=== PATIENT | female | born 1965 | race Asian ===

== ENCOUNTER 2018-06-15 12:17 | Outpatient (CLI) | payer OTHER ==
--- NOTE | 2018-06-16 10:18 | Mammography Report ---
Procedure Date: 06/15/2018 Accession Number: [id number] / [id number] Procedure: MGN - Screening Mammo Dig Bilat CPT Code: FULL RESULT: EXAM: Screening Mammo Dig Bilat DATE: 06/15/2018 12:39 PM CLINICAL HISTORY: Routine screening TECHNIQUE: Bilateral CC and MLO views were obtained. COMPARISON: 01/29/2016, 05/15/2014, 07/15/2012 and 05/23/2010 FINDINGS: The breast tissue is heterogeneously dense. No significant interval change. No suspicious masses, clustered microcalcifications, or regions of architectural distortion are identified. IMPRESSION: Negative examination RECOMMENDATION: Routine annual screening unless otherwise clinically indicated. BIRADS CATEGORY 1: Negative STANDARD QUALIFYING STATEMENTS: 1. This examination was reviewed with the aid of Computer-Aided Detection (CAD). 2. A negative or benign imaging report should not delay biopsy if clinically suspicious findings are present. Consider surgical consultation if warrented. More than 5% of cancers are not identified by imaging. 3. Dense breasts may obscure an underlying neoplasm.
== END 2018-06-15 12:18 | disposition home or self-care (01) ==
LOC: DI.N 12:17
PROVIDERS: ATTEND Obstetrics & Gynecology
DX: Z12.31 Encounter for screening mammogram for malignant neoplasm of breast (principal)
CPT/HCPCS: 77067

== ENCOUNTER 2018-07-02 14:17 | Outpatient (CLI) | payer OTHER ==
--- NOTE | 2018-07-03 16:00 | Ultrasound Report ---
Reason: POSTMENOPAUSAL BLEEDING Procedure Date: 07/02/2018 Accession Number: [id number] / [id number] Procedure: US - Pelvic w/Transvaginal CPT Code: FULL RESULT: EXAM: PELVIC ULTRASOUND EXAM DATE: 07/02/2018 04:01 PM. CLINICAL HISTORY: POSTMENOPAUSAL BLEEDING. COMPARISON: None. TECHNIQUE: Realtime transabdominal pelvic scan performed to identify the uterus and adnexa and as an overview of other pelvic structures, followed by transvaginal scan to provide greater detail of the uterus and adnexa, with static image documentation. FINDINGS: Limited exam given body habitus. Uterus: 8.3 x 3.8 x 5.6 cm, volume 92 cc.Heterogeneous echotexture. Masses: None. Endometrium: 3.1 mm on transabdominal images. Endometrium not well visualized on transvaginal images. Cervix: Heterogeneous. Complex cystic area in the cervix measures 1.2 cm, query Nabothian cyst. Right Ovary: 3.2 x 1.5 x 2.7 cm, volume 6.7 cc. Normal echotexture and blood flow. Left Ovary: 2.0 x 1.6 x 1.7 cm, volume 2.8 cc. Normal echotexture and blood flow. Free Fluid: None. Other: None. IMPRESSION: Limited exam. Endometrium measures 3 mm on transabdominal images, query endometrial atrophy. RADIA
== END 2018-07-02 14:18 | disposition home or self-care (01) ==
LOC: DI 14:17
PROVIDERS: ATTEND Obstetrics & Gynecology
DX: N95.0 Postmenopausal bleeding (principal)
CPT/HCPCS: 76830; 76856

== ENCOUNTER 2019-07-08 10:22 | Outpatient (CLI) | payer OTHER ==
--- NOTE | 2019-07-12 09:37 | Mammography Report ---
Reason: SCREENING MAMMO Procedure Date: 07/08/2019 Accession Number: [id number] / [id number] Procedure: MGN - Screening Mammo Dig Bilat CPT Code: FULL RESULT: EXAM: Screening Mammo Dig Bilat DATE: 07/08/2019 10:44 AM CLINICAL HISTORY: Routine screening TECHNIQUE: (B) - Bilateral CC and MLO views were obtained. COMPARISON: 06/15/2018, 09/07/2012, 01/28/2010 and 10/27/2008 PARENCHYMAL PATTERN: (VD) - The breasts demonstrate extremely dense parenchyma bilaterally, limiting the sensitivity of mammography. FINDINGS: No significant interval change. There are no suspicious masses, calcifications, or areas of distortion. IMPRESSION: Negative examination. BI-RADS category 1. RECOMMENDATION: (ANNUAL) - Recommend routine annual screening mammography. BI-RADS CATEGORY: (1) - Negative. STANDARD QUALIFYING STATEMENTS: 1. This examination was not reviewed with the aid of Computer-Aided Detection (CAD). 2. A negative or benign imaging report should not preclude biopsy if clinically suspicious findings are present. 3. Dense breasts may obscure an underlying neoplasm. 4. This examination was reviewed without the aid of 3D breast imaging (tomosynthesis).
== END 2019-07-08 10:23 | disposition home or self-care (01) ==
LOC: DI.N 10:22
DX: Z12.31 Encounter for screening mammogram for malignant neoplasm of breast (principal)
CPT/HCPCS: 77067

== ENCOUNTER 2020-01-03 11:22 | Emergency (ER) | payer OTHER ==
--- NOTE | 2020-01-03 13:48 | ED Physician Documentation ---
History of Present Illness - Stated complaint Stated Complaint: FEVER/COUGH - Chief complaint Chief Complaint: General - History obtained from History obtained from: Patient (this 54 yr old female presents with a 5-7 day course of sinus pressure in the face, has some PND when lying flat, otherwise she is without couging, rhinnorhea, fever, nausea, vomiting, diarrhea, or headache. she has taken Ibuprofen for the past two days with some relief.She has tried nothing else for symptom management. She denies any home contacts that are sick, she does work at a [employer] where there is smoking allowed.), Family Review of Systems Constitutional: reports: Fatigue. denies: Fever, Chills Ears: reports: Reviewed and negative Nose: reports: Reviewed and negative GI: denies: Abdominal Pain, Nausea, Vomiting, Diarrhea Musculoskeletal: reports: Reviewed and negative Neurologic: denies: Headache PD PAST MEDICAL HISTORY - Past Medical History Cardiovascular: Hypertension Respiratory: None Psych: Depression, Anxiety - Past Surgical History Past Surgical History: No - Present Medications Home Medications: Ambulatory Orders Medication Instructions Recorded Confirmed Azithromycin [Zithromax] 250 mg PO DAILY #6 tablet 10/14/16 Benzonatate [Tessalon] 100 - 200 mg PO TID PRN #20 capsule 10/14/16 Losartan/Hydrochlorothiazide 1 tab PO DAILY 10/14/16 10/14/16 [Losartan-Hctz 100-12.5 mg Tab] Oseltamivir [Tamiflu] 75 mg PO BID #10 capsule 10/14/16 Simvastatin 1 tab PO DAILY 10/14/16 10/14/16 - Allergies Allergies/Adverse Reactions: Allergies Allergy/AdvReac Type Severity Reaction Status Date / Time No Known Drug Allergies Allergy Verified 01/03/20 11:32 - Social History Does the pt smoke?: No Smoking Status: Never smoker Does the pt drink ETOH?: Yes Does the pt have substance abuse?: No - Immunizations Immunizations are current?: Yes - POLST Patient has POLST: No PD ED PE NORMAL - General General: Alert and oriented X 3 - HEENT HEENT: Atraumatic, PERRL, EOMI, Ears normal - Neck Neck: No adenopathy - Cardiac Cardiac: RRR, No murmur - Respiratory Respiratory: No respiratory distress, Clear bilaterally - Neuro Neuro: Alert and oriented X 3 PD ED PE EXPANDED - General General: No acute distress, Well developed/nourished - HEENT HEENT: PERRL, Right maxillary sinus TTP, Left maxillary sinus TTP. No: Nasal congestion, Rhinorrhea - Neck Neck: No: Adenopathy Results - Vitals Vitals: Vital Signs - 24 hr 01/03/20 01/03/20 11:32 13:06 Temperature 37.2 C 36.7 C Heart Rate 64 58 L Respiratory 18 16 Rate Blood Pressure 126/63 129/61 O2 Saturation 97 98 Oxygen O2 Source Room air PD MEDICAL DECISION MAKING - ED course Complexity details: reviewed old records, d/w patient, d/w family (The pt has some maxillary TTP, without nasal exudate or PND. The pt remains without coughing, wheezing, SOB, and is afebrile.) Departure - Departure Disposition: 01 Home, Self Care Clinical Impression: Sinusitis nasal Qualifiers: Sinusitis location: maxillary Chronicity: acute Recurrence: non-recurrent Qualified Code(s): J01.00 - Acute maxillary sinusitis, unspecified Condition: Good Instructions: ED Sinusitis No Abx Comments: the pt is encouraged to do nasal flushing / rinse daily to help alleviate sinuses congestion. Encourage plenty of clear fluids, limiting dairy intake to help reduce worsening congestion. She can continue to use Ibuprofen for facial discomfort and general soreness. She can follow up with her PCP if her symptoms fail to improve in 3-5 days, or she may return to the emergency room if her symptoms worsen. Forms: Activity restrictions
[2020-01-03 14:24] VITALS: BP 135/71
== END 2020-01-03 14:26 | disposition home or self-care (01) ==
LOC: ED 11:22
DX: J01.00 Acute maxillary sinusitis, unspecified (principal); I10 Essential (primary) hypertension
CPT/HCPCS: 99282; 99283

== ENCOUNTER 2020-02-14 01:50 | Emergency (ER) | payer OTHER ==
--- NOTE | 2020-02-14 01:52 | ED Physician Documentation ---
PD HPI URI - Stated complaint Stated Complaint: COUGH - History obtained from History obtained from: Patient - History of Present Illness Timing - onset: How many days ago (3) Timing duration: Days (3) Associated symptoms: Chills, Nasal congestion, Dry cough, Dyspnea. No: Fever, Rhinorrhea, Productive cough, Chest pain, NVD, Bilateral edema Contributing factors: No: Sick contact (but is concerned about COVID), Travel, Immunocompromised, COPD / asthma Similar symptoms before: Has not had sx before Recently seen: Not recently seen Review of Systems Constitutional: reports: Myalgias, Fatigue. denies: Fever, Chills Nose: reports: Rhinorrhea / runny nose, Congestion Throat: denies: Sore throat Cardiac: denies: Chest pain / pressure, Palpitations Respiratory: reports: Dyspnea, Cough. denies: Wheezing Skin: denies: Rash, Lesions PD PAST MEDICAL HISTORY - Past Medical History Cardiovascular: Hypertension Respiratory: None Psych: Depression, Anxiety - Past Surgical History Past Surgical History: No - Present Medications Home Medications: Ambulatory Orders Medication Instructions Recorded Confirmed Losartan/Hydrochlorothiazide 1 tab PO DAILY 10/14/16 10/14/16 [Losartan-Hctz 100-12.5 mg Tab] Simvastatin 1 tab PO DAILY 10/14/16 10/14/16 Albuterol Sulfate [Albuterol 2 puffs IH QID #1 hfa.aer.ad 02/14/20 Sulfate Hfa] Benzonatate [Tessalon Perle] 100 mg PO TID PRN #25 capsule 02/14/20 - Allergies Allergies/Adverse Reactions: Allergies Allergy/AdvReac Type Severity Reaction Status Date / Time No Known Drug Allergies Allergy Verified 01/03/20 11:32 - Social History Does the pt smoke?: No Smoking Status: Never smoker Does the pt drink ETOH?: Yes Does the pt have substance abuse?: No - Immunizations Immunizations are current?: Yes - POLST Patient has POLST: No PD ED PE NORMAL - Vitals Vital signs reviewed: Yes - General General: Alert and oriented X 3, No acute distress, Well developed/nourished - Neck Neck: Supple, no meningeal sign, No adenopathy - Cardiac Cardiac: RRR, No murmur - Respiratory Respiratory: Clear bilaterally, Other (no chestwall tenderness) - Abdomen Abdomen: Soft, Non tender - Derm Derm: Normal color, Warm and dry - Extremities Extremities: No tenderness to palpate, Normal ROM s pain, No edema, No calf tenderness / cord - Neuro Neuro: Alert and oriented X 3, No motor deficit, Normal speech Results - Vitals Vitals: Vital Signs - 24 hr 02/14/20 02:06 Temperature 36.9 C Heart Rate 55 L Respiratory 16 Rate Blood Pressure 148/80 H O2 Saturation 99 Oxygen O2 Source Room air - Rads (name of study) chest xray Radiology: Prelim report reviewed (normal), See rad report Departure - Departure Disposition: Home, Self Care Clinical Impression: Cough Upper respiratory infection Qualifiers: URI type: unspecified URI Qualified Code(s): J06.9 - Acute upper respiratory infection, unspecified Condition: Stable Record reviewed to determine appropriate education?: Yes Instructions: ED Upper Resp Infec No Abx Tx Follow-Up: Dennis Garcia MD [Primary Care Provider] - Prescriptions: Albuterol Sulfate [Albuterol Sulfate Hfa] 2 puffs IH QID #1 hfa.aer.ad Benzonatate [Tessalon Perle] 100 mg PO TID PRN #25 capsule PRN Reason: Cough Comments: Your chest x-ray appears clear. No signs of pneumonia at this time. Your symptoms may be from upper respiratory infection with the cough. Alternatively it could be seasonal allergies or such as well. Your COVID test will result in 1 or 2 days and will call you with the results. Meanwhile we will try to improve your symptoms with an albuterol inhaler 2 puffs 4 times a day for the next 7 to 10 days. O Tessalon if needed for cough. Stay well-hydrated. Tylenol or ibuprofen if needed for fevers or pains. Recheck if worsening over the next several days to a week. Discharge Date/Time: 02/14/20 03:30
[2020-02-14 02:08] VITALS: BP 148/80
[2020-02-14] MEDS ORDERED: BENZONATATE 100 MG CAPSULE PO STA (02:18)
--- NOTE | 2020-02-14 02:48 | XRAY Report ---
Reason: cough and dyspnea for 3 days Procedure Date: 02/14/2020 Accession Number: [id number] / [id number] Procedure: XR - Chest 1 View X-Ray CPT Code: 89963 Final Report FULL RESULT: EXAM: CHEST RADIOGRAPHY EXAM DATE: 02/14/2020 02:36 AM. CLINICAL HISTORY: Cough and dyspnea for 3 days. COMPARISON: XR CHEST PA AND LAT 03/22/2011 10:52 PM XR CHEST PA AND LAT 04/14/2010 12:23 PM. TECHNIQUE: 1 view. FINDINGS: Lungs/Pleura: Small streaky right upper lobe opacity persist, patient will be a sequela of scarring. There is no new airspace disease. No effusion or definite pneumothorax. Mediastinum: Cardiac silhouette is within normal limits when accounting for lung volumes and technique. Other: None. IMPRESSION: Stable appearance of the chest without acute cardiopulmonary abnormality. RADIA
[2020-02-14] MEDS ORDERED: CHERRY SYRUP 10 ML UDC PO ONE (02:58)
[2020-02-14] MEDS ORDERED: DEXAMETHASONE 10 MG/ML VIAL PO STA (02:58)
== END 2020-02-14 03:30 | disposition home or self-care (01) ==
LOC: ED 01:50
DX: J06.9 Acute upper respiratory infection, unspecified (principal); I10 Essential (primary) hypertension
CPT/HCPCS: 71045; 87635; 99283; 99284; A9270; 81599

== ENCOUNTER 2020-03-27 08:00 | Outpatient (CLI) | payer OTHER ==
[2020-03-27 18:19] LABS: BASOPHILS # (AUTO) 0.1 10^3/uL (0.0-0.1); BASOPHILS % (AUTO) 0.6 %; EOSINOPHILS # (AUTO) 0.1 10^3/uL (0.0-0.7); EOSINOPHILS % (AUTO) 1.4 %; HGB - HEMOGLOBIN 13.5 g/dL (12.0-16.0); LYMPHOCYTES # (AUTO) 1.9 10^3/uL (1.5-3.5); MEAN CORPUSCULAR HEMOGLOBIN 30.3 pg (27.0-31.0); MEAN CORPUSCULAR HGB CONC 33.2 g/dL (32.0-36.0); MEAN CORPUSCULAR VOLUME 91.3 fL (81.0-99.0); MEAN PLATELET VOLUME 9.6 fL (7.9-10.8); MONOCYTES # (AUTO) 0.7 10^3/uL (0.0-1.0); MONOCYTES % (AUTO) 7.7 %; NEUTROPHILS # (AUTO) 6.7 10^3/uL (1.5-6.6); PLT - PLATELET COUNT 357 10^3/uL (130-450); RED BLOOD COUNT 4.46 10^6/uL (4.20-5.40); RED CELL DISTRIBUTION WIDTH 12.4 % (12.0-15.0); WHITE BLOOD COUNT 9.6 x10^3/uL (4.8-10.8)
[2020-03-27 18:30] LABS: ALKALINE PHOSPHATASE 49 IU/L (42-121); ALT ALANINE AMINOTRANSFERASE 58 IU/L (10-60); AST ASPARTATE AMINOTRANSFERASE 57 IU/L (10-42); BILIRUBIN,TOTAL 0.7 mg/dL (0.2-1.0); BUN - BLOOD UREA NITROGEN 19 mg/dL (6-20); CALCIUM 9.4 mg/dL (8.5-10.3); CARBON DIOXIDE - CO2 31 mmol/L (21-32); CHLORIDE 101 mmol/L (101-111); CHOLESTEROL 144 mg/dL; CREATININE 0.7 mg/dL (0.4-1.0); GLUCOSE 153 mg/dL (70-100); HDL CHOLESTEROL 48 mg/dL; LDL CHOLESTEROL,CALCULATED 55 mg/dL; LDL/HDL RATIO 1.1 (<4.4); SODIUM 139 mmol/L (135-145); TOTAL PROTEIN 8.1 g/dL (6.7-8.2); VLDL CHOLESTEROL 41 mg/dL
== END 2020-03-27 23:59 | disposition home or self-care (01) ==
LOC: LAB.WCP 08:00
PROVIDERS: ATTEND Family Medicine
DX: I10 Essential (primary) hypertension (principal); E78.2 Mixed hyperlipidemia
CPT/HCPCS: 36415; 80053; 80061; 83721; 84443; 85025

== ENCOUNTER 2020-07-20 12:41 | Emergency (ER) | payer OTHER ==
[2020-07-20 13:05] LABS: BASOPHILS # (AUTO) 0.1 10^3/uL (0.0-0.1); BASOPHILS % (AUTO) 0.5 %; EOSINOPHILS # (AUTO) 0.2 10^3/uL (0.0-0.7); EOSINOPHILS % (AUTO) 1.7 %; HGB - HEMOGLOBIN 13.7 g/dL (12.0-16.0); LYMPHOCYTES # (AUTO) 2.1 10^3/uL (1.5-3.5); LYMPHOCYTES % (AUTO) 22.9 %; MEAN CORPUSCULAR HEMOGLOBIN 31.5 pg (27.0-31.0); MEAN CORPUSCULAR HGB CONC 33.9 g/dL (32.0-36.0); MEAN CORPUSCULAR VOLUME 92.9 fL (81.0-99.0); MEAN PLATELET VOLUME 9.2 fL (7.9-10.8); MONOCYTES # (AUTO) 0.8 10^3/uL (0.0-1.0); MONOCYTES % (AUTO) 8.8 %; NEUTROPHILS % (AUTO) 65.7 %; PLT - PLATELET COUNT 319 10^3/uL (130-450); RED BLOOD COUNT 4.35 10^6/uL (4.20-5.40); RED CELL DISTRIBUTION WIDTH 12.3 % (12.0-15.0); WHITE BLOOD COUNT 9.2 x10^3/uL (4.8-10.8)
[2020-07-20 13:18] LABS: ALBUMIN 4.1 g/dL (3.2-5.5); ALBUMIN/GLOBULIN RATIO 1.2 (1.0-2.2); BILIRUBIN,TOTAL 0.4 mg/dL (0.2-1.0); CALCIUM 9.3 mg/dL (8.5-10.3); CREATININE 0.8 mg/dL (0.4-1.0); TOTAL PROTEIN 7.5 g/dL (6.7-8.2)
[2020-07-20] MEDS ORDERED: DEXAMETHASONE 10 MG/ML VIAL IVP STA (15:05)
[2020-07-20] MEDS ORDERED: SODIUM CHLORIDE 0.9% 1,000 ML IV STA (15:06)
--- NOTE | 2020-07-20 15:07 | ED Physician Documentation ---
History of Present Illness - Stated complaint Stated Complaint: DIZZY, BILAT ARM TINGLING - Chief complaint Chief Complaint: General - History obtained from History obtained from: Patient, Family - History of Present Illness Timing: How many days ago (3) - Additonal information Additional information: 55-year-old female in her usual state of health is developed dizziness and lightheadedness as well as some numbness and tingling to her hands bilaterally. She has had a problem with cough for the past 2 months. Review of Systems Constitutional: denies: Fever Eyes: denies: Decreased vision Ears: denies: Ear pain Nose: denies: Congestion Throat: denies: Sore throat Cardiac: denies: Chest pain / pressure, Palpitations Respiratory: denies: Dyspnea, Cough GI: denies: Abdominal Pain, Nausea, Vomiting : reports: Frequency. denies: Dysuria Musculoskeletal: denies: Neck pain, Back pain, Extremity pain Neurologic: denies: Generalized weakness, Focal weakness, Numbness Endocrine: reports: Polydypsia, Polyuria PD PAST MEDICAL HISTORY - Past Medical History Cardiovascular: Hypertension Respiratory: None Neuro: None Endocrine/Autoimmune: None HEENT: None Psych: Depression, Anxiety Derm: None - Past Surgical History Past Surgical History: No - Present Medications Home Medications: Ambulatory Orders Medication Instructions Recorded Confirmed Losartan/Hydrochlorothiazide 1 tab PO DAILY 10/14/16 10/14/16 [Losartan-Hctz 100-12.5 mg Tab] Simvastatin 1 tab PO DAILY 10/14/16 10/14/16 Albuterol Sulfate [Albuterol 2 puffs IH QID #1 hfa.aer.ad 02/14/20 Sulfate Hfa] Benzonatate [Tessalon Perle] 100 mg PO TID PRN #25 capsule 02/14/20 Azithromycin [Zithromax] 250 mg PO DAILY #6 tablet 07/20/20 dexAMETHasone [Decadron] 4 mg PO DAILY #5 tablet 07/20/20 - Allergies Allergies/Adverse Reactions: Allergies Allergy/AdvReac Type Severity Reaction Status Date / Time No Known Drug Allergies Allergy Verified 07/20/20 12:45 - Social History Does the pt smoke?: No Smoking Status: Never smoker Does the pt drink ETOH?: Yes Does the pt have substance abuse?: No - Immunizations Immunizations are current?: Yes - POLST Patient has POLST: No PD ED PE NORMAL - Vitals Vital signs reviewed: Yes (normal ) - General General: Alert and oriented X 3, No acute distress, Well developed/nourished - HEENT HEENT: Atraumatic, PERRL, EOMI - Neck Neck: Supple, no meningeal sign, No bony TTP - Cardiac Cardiac: RRR, No murmur - Respiratory Respiratory: No respiratory distress, Clear bilaterally - Abdomen Abdomen: Soft, Non tender - Back Back: No CVA TTP, No spinal TTP - Derm Derm: Normal color, Warm and dry, No rash - Extremities Extremities: No deformity, No edema - Neuro Neuro: Alert and oriented X 3, resource economist 2-12 intact, No motor deficit, Normal speech, Other (subjective numbness to both upper ext. no motor component) Eye Opening: Spontaneous Motor: Obeys Commands Verbal: Oriented GCS Score: 15 - Psych Psych: Normal mood, Normal affect Results - Vitals Vitals: Vital Signs - 24 hr 07/20/20 07/20/20 07/20/20 12:45 14:19 16:00 Temperature 36.7 C 36.7 C Heart Rate 64 47 L 56 L Respiratory 16 22 18 Rate Blood Pressure 124/65 126/66 116/66 O2 Saturation 98 98 100 07/20/20 07/20/20 18:02 18:46 Temperature 36.8 C Heart Rate 62 60 Respiratory 17 20 Rate Blood Pressure 151/68 H 145/80 H O2 Saturation 100 99 Oxygen O2 Source Room air - Labs Labs: Laboratory Tests 07/20/20 07/20/20 07/20/20 13:01 13:01 13:01 WBC 9.2 RBC 4.35 Hgb 13.7 Hct 40.4 MCV 92.9 MCH 31.5 H MCHC 33.9 RDW 12.3 Plt Count 319 MPV 9.2 Neut # (Auto) 6.0 Lymph # (Auto) 2.1 [place] # (Auto) 0.8 Eos # (Auto) 0.2 Baso # (Auto) 0.1 Absolute Nucleated RBC 0.00 Nucleated RBC % 0.0 Sodium 137 Potassium 3.2 L Chloride 98 L Carbon Dioxide 25 Anion Gap 14.0 H BUN 16 Creatinine 0.8 Estimated GFR (MDRD) 75 L Glucose 113 H Calcium 9.3 Total Bilirubin 0.4 AST 41 ALT 52 Alkaline Phosphatase 49 Troponin I High Sens 5.1 Total Protein 7.5 Albumin 4.1 Globulin 3.4 Albumin/Globulin Ratio 1.2 Lipase 37 Urine Color Urine Clarity Urine pH Ur Specific [place] Urine Protein Urine Glucose (UA) Urine Ketones Urine Occult Blood Urine Nitrite Urine Bilirubin Urine Ictotest Urine Urobilinogen Ur Leukocyte Esterase Ur Microscopic Review Urine Culture Comments 07/20/20 07/20/20 16:16 16:26 WBC RBC Hgb Hct MCV MCH MCHC RDW Plt Count MPV Neut # (Auto) Lymph # (Auto) [place] # (Auto) Eos # (Auto) Baso # (Auto) Absolute Nucleated RBC Nucleated RBC % Sodium Potassium Chloride Carbon Dioxide Anion Gap BUN Creatinine Estimated GFR (MDRD) Glucose Calcium Total Bilirubin AST ALT Alkaline Phosphatase Troponin I High Sens Total Protein Albumin Globulin Albumin/Globulin Ratio Lipase Urine Color YELLOW Cancelled Urine Clarity CLEAR Cancelled Urine pH 6.5 Cancelled Ur Specific [place] 1.025 Cancelled Urine Protein NEGATIVE Cancelled Urine Glucose (UA) NEGATIVE Cancelled Urine Ketones NEGATIVE Cancelled Urine Occult Blood NEGATIVE Cancelled Urine Nitrite NEGATIVE Cancelled Urine Bilirubin NEGATIVE Cancelled Urine Ictotest Cancelled Urine Urobilinogen 0.2 (NORMAL) Cancelled Ur Leukocyte Esterase NEGATIVE Cancelled Ur Microscopic Review NOT INDICATED Cancelled Urine Culture Comments NOT INDICATED Cancelled - Rads (name of study) CT cervical spine Radiology: Prelim report reviewed (Impression: 1. No fracture or subluxation. Confluent anterior osteophytes within the mid and lower cervical spine with relative preservation of the disc spaces suggestive of diffuse idiopathic skeletal hyperostosis (dish).), EMP read indepedently, See rad report CT chest with Radiology: Prelim report reviewed (Impression: 1. Interstitial thickening and groundglass opacities in apex of the right lung compatible with atypical/viral pneumonia, asymmetric pulmonary edema, chronic interstitial lung disease or less likely carcinomatosis. 2. Hepatic steatosis.), EMP read indepedently, See rad report PD MEDICAL DECISION MAKING - ED course Complexity details: reviewed old records, reviewed results, re-evaluated patient, considered differential, d/w patient, d/w family ED course: 51-year-old female with 3 days of numbness to her arms has pathology on the cervical spine CT and I suspect she has a radiculopathy. She has had a cough and she has some findings on her CT scan of her chest of an atypical pneumonia. Here in the emergency department she is administered dexamethasone 10 mg IV and we will place her on some Azithromyacin for atypical pneumonia. She will need MRI of the cervical spine to be done as an outpatient. Departure - Departure Disposition: 01 Home, Self Care Clinical Impression: Atypical pneumonia, Cervical radiculopathy Condition: Stable Instructions: ED Pneumonia Adult, ED Cervical Radiculopathy Follow-Up: Dennis Garcia MD [Primary Care Provider] - Prescriptions: dexAMETHasone [Decadron] 4 mg PO DAILY #5 tablet Azithromycin [Zithromax] 250 mg PO DAILY #6 tablet Comments: Today we have found some abnormality to the cervical spine and you will need to have an MRI done of your cervical spine. This is what needs to be done as a outpatient procedure follow-up with Dr. Garcia to schedule this. Forms: Activity restrictions Discharge Date/Time: 07/20/20 18:55
--- NOTE | 2020-07-20 16:09 | CT Report ---
PROCEDURE: CERVICAL SPINE WO INDICATIONS: neck pain bilat arm numbness TECHNIQUE: Noncontrast 3 mm thick sections acquired from the skull base to the T4 level. Sagittal and coronal r eformats were then constructed. For radiation dose reduction, the following was used: automated exp osure control, adjustment of mA and/or kV according to patient size. COMPARISON: None. FINDINGS: Image quality: Excellent. Bones: No fractures or dislocations. There is straightening of the cervical lordosis. Bridging anter ior osteophytes are demonstrated within the mid and lower cervical spine. Disc spaces appear relative ly preserved. Visualized superior ribs are intact. Soft tissues: Prevertebral soft tissues are normal in thickness. No paravertebral hematomas. No ap ical pneumothoraces. Within the visualized right upper lobe, there are confluent groundglass opacitie s and septal thickening with a small right pleural effusion. Findings are incompletely evaluated on t he current study. IMPRESSION: 1. No fracture or subluxation. 2. Confluent anterior osteophytes within the mid and lower cervical spine with relative preservation of the disc spaces suggestive of diffuse idiopathic skeletal hyperostosis (DISH). 3. Confluent groundglass opacities with septal thickening and small pleural effusion within the visua lized right lung. The findings are nonspecific but suggestive of pneumonia. Recommend dedicated chest CT for further evaluation. Reviewed by: Paulie Lomas MD on 07/20/2020 4:07 PM PDT Approved by: Paulie Lomas MD on 07/20/2020 4:07 PM PDT Station ID: [id number]
[2020-07-20] MEDS ORDERED: IOVERSOL 320 100 ML VIAL IVP ONE ×2 (17:06→19:41)
[2020-07-20 17:26] LABS: BILIRUBIN,URINE NEGATIVE (NEGATIVE); GLUCOSE, URINE (UA) NEGATIVE (NEGATIVE); KETONES,URINE (UA) NEGATIVE (NEGATIVE); LEUKOCYTE ESTERASE, URINE NEGATIVE (NEGATIVE); NITRITE,URINE NEGATIVE (NEGATIVE); OCCULT BLOOD,URINE NEGATIVE (NEGATIVE); PH,URINE 6.5 PH (5.0-7.5); PROTEIN,URINE NEGATIVE (NEGATIVE); UROBILINOGEN,URINE 0.2 (NORMAL) E.U./dL (NORMAL)
[2020-07-20 17:43] LABS: CLARITY,URINE CLEAR (CLEAR)
--- NOTE | 2020-07-20 18:12 | CT Report ---
PROCEDURE: CHEST W INDICATIONS: cough findings on cervical spine CT CONTRAST: IV CONTRAST: Optiray 320 ml: 100 PO CONTRAST: *NO PO CONTRAST TECHNIQUE: After the administration of intravenous contrast, 5 mm thick sections acquired from the pulmonary api macy to the posterior costophrenic angles. 7 mm thick coronal MIP reformats were acquired. For radia tion dose reduction, the following was used: automated exposure control, adjustment of mA and/or kV according to patient size. COMPARISON: None. FINDINGS: Image quality: Excellent. Lungs and pleura: Interstitial thickening and scattered groundglass opacities noted in the apex of th e right lung. No pleural effusions or pneumothorax. Central and peripheral airways are patent and no rmal in caliber. Mediastinum: Heart size is normal. No pericardial effusion. No mediastinal or hilar adenopathy by size criteria. Thoracic aorta and central pulmonary arteries are normal in size. Esophagus is hao l in caliber. Small hiatal hernia. Bones and chest wall: No suspicious bony lesions. No vertebral body compression fractures. No axil ghazala or supraclavicular adenopathy by size criteria. Thyroid gland is within normal limits. Abdomen: Diffuse fatty infiltration of the visualized liver. Visualized upper abdominal solid organs otherwise appear normal. Upper abdominal bowel loops are normal in caliber. IMPRESSION: 1. Interstitial thickening and ground glass opacities in apex of the right lung compatible with atypi vic/viral pneumonia, asymmetric pulmonary edema, chronic interstitial lung disease or less likely car cinomatosis. 2. Hepatic steatosis. Reviewed by: Maame Capellan MD, PhD on 07/20/2020 6:11 PM PDT Approved by: Maame Capellan MD, PhD on 07/20/2020 6:11 PM PDT Station ID: [id number]
[2020-07-20 18:46] VITALS: BP 145/80
== END 2020-07-20 18:55 | disposition home or self-care (01) ==
LOC: ED 12:41
DX: J18.9 Pneumonia, unspecified organism (principal); M54.12 Radiculopathy, cervical region
CPT/HCPCS: 36415; 71260; 72125; 80053; 81003; 83690; 84484; 85025; 96361; 96374; 99284; Q9967; 81001; 87086

== ENCOUNTER 2020-09-23 22:28 | Emergency (ER) | payer OTHER ==
--- NOTE | 2020-09-23 23:54 | ED Physician Documentation ---
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: None : None HEENT: None Psych: Depression, Anxiety Musculoskeletal: None Derm: None - Past Surgical History Past Surgical History: No - Present Medications Home Medications: Ambulatory Orders Medication Instructions Recorded Confirmed Losartan/Hydrochlorothiazide 1 tab PO DAILY 10/14/16 10/14/16 [Losartan-Hctz 100-12.5 mg Tab] Atorvastatin [Lipitor] 40 mg pe DAILY 09/23/20 09/23/20 Omeprazole 20 mg DAILY 09/23/20 09/23/20 Sertraline [Zoloft] 09/23/20 - Allergies Allergies/Adverse Reactions: Allergies Allergy/AdvReac Type Severity Reaction Status Date / Time No Known Drug Allergies Allergy Verified 09/23/20 22:35 - Social History Does the pt smoke?: No Smoking Status: Never smoker Does the pt drink ETOH?: Yes Does the pt have substance abuse?: No - Immunizations Immunizations are current?: Yes - POLST Patient has POLST: No Results - Vitals Vitals: Vital Signs - 24 hr 09/23/20 09/23/20 09/23/20 22:35 22:57 22:59 Temperature 36.5 C Heart Rate 68 85 53 L Respiratory 16 15 Rate Blood Pressure 176/78 H 138/64 H 138/64 H O2 Saturation 98 100 100 09/24/20 00:39 Temperature 36.6 C Heart Rate 54 L Respiratory 14 Rate Blood Pressure 120/57 L O2 Saturation 98 Oxygen O2 Source Room air - Labs Labs: Laboratory Tests 09/24/20 09/24/20 00:15 00:15 WBC 8.5 RBC 4.16 L Hgb 13.0 Hct 38.5 MCV 92.5 MCH 31.3 H MCHC 33.8 RDW 11.7 L Plt Count 306 MPV 9.1 Neut # (Auto) 5.4 Lymph # (Auto) 2.0 [place] # (Auto) 0.9 Eos # (Auto) 0.2 Baso # (Auto) 0.1 Absolute Nucleated RBC 0.00 Nucleated RBC % 0.0 Sodium 136 Potassium 3.3 L Chloride 100 L Carbon Dioxide 28 Anion Gap 8.0 BUN 24 H Creatinine 0.7 Estimated GFR (MDRD) 87 L Glucose 110 H Calcium 9.4 Total Bilirubin 0.8 AST 30 ALT 34 Alkaline Phosphatase 54 Total Protein 7.5 Albumin 4.1 Globulin 3.4 Albumin/Globulin Ratio 1.2 Lipase 38 Departure - Departure Disposition: 01 Home, Self Care Clinical Impression: Hypokalemia Hypertension Qualifiers: Hypertension type: unspecified Qualified Code(s): I10 - Essential (primary) hypertension Condition: Good Instructions: ED HTN Established, ED Potassium Deficiency Discharge Date/Time: 09/24/20 01:36
[2020-09-24 00:21] LABS: BASOPHILS # (AUTO) 0.1 10^3/uL (0.0-0.1); BASOPHILS % (AUTO) 0.6 %; EOSINOPHILS # (AUTO) 0.2 10^3/uL (0.0-0.7); EOSINOPHILS % (AUTO) 2.3 %; LYMPHOCYTES % (AUTO) 23.2 %; MEAN CORPUSCULAR HEMOGLOBIN 31.3 pg (27.0-31.0); MEAN CORPUSCULAR HGB CONC 33.8 g/dL (32.0-36.0); MEAN CORPUSCULAR VOLUME 92.5 fL (81.0-99.0); MEAN PLATELET VOLUME 9.1 fL (7.9-10.8); MONOCYTES # (AUTO) 0.9 10^3/uL (0.0-1.0); MONOCYTES % (AUTO) 10.7 %; NEUTROPHILS # (AUTO) 5.4 10^3/uL (1.5-6.6); NEUTROPHILS % (AUTO) 62.7 %; PLT - PLATELET COUNT 306 10^3/uL (130-450); RED BLOOD COUNT 4.16 10^6/uL (4.20-5.40); RED CELL DISTRIBUTION WIDTH 11.7 % (12.0-15.0); WHITE BLOOD COUNT 8.5 x10^3/uL (4.8-10.8)
[2020-09-24 00:33] LABS: ALBUMIN 4.1 g/dL (3.2-5.5); ALBUMIN/GLOBULIN RATIO 1.2 (1.0-2.2); BILIRUBIN,TOTAL 0.8 mg/dL (0.2-1.0); CALCIUM 9.4 mg/dL (8.5-10.3); CREATININE 0.7 mg/dL (0.4-1.0); TOTAL PROTEIN 7.5 g/dL (6.7-8.2)
[2020-09-24 00:43] VITALS: BP 120/57
[2020-09-24] MEDS ORDERED: POTASSIUM CHLORIDE 20 MEQ TABLET PO STA (00:48)
== END 2020-09-24 01:36 | disposition home or self-care (01) ==
LOC: ED 22:28
DX: I10 Essential (primary) hypertension (principal); E87.6 Hypokalemia
CPT/HCPCS: 36415; 80053; 83690; 85025; 99283; A9270

== ENCOUNTER 2020-10-05 08:42 | Outpatient (CLI) | payer OTHER ==
[2020-10-05] MEDS ORDERED: IOVERSOL 320 100 ML VIAL IVP ONE ×2 (09:11→16:32)
--- NOTE | 2020-10-05 14:14 | CT Report ---
PROCEDURE: CHEST W INDICATIONS: ABN CHEST CT CONTRAST: IV CONTRAST: Optiray 320 ml: 80 PO CONTRAST: *NO PO CONTRAST TECHNIQUE: After the administration of intravenous contrast, 5 mm thick sections acquired from the pulmonary api macy to the posterior costophrenic angles. 7 mm thick coronal MIP reformats were acquired. For radia tion dose reduction, the following was used: automated exposure control, adjustment of mA and/or kV according to patient size. COMPARISON: 07/20/2020. FINDINGS: Image quality: Excellent. Lungs and pleura: Compared to previous study, again noted are interstitial thickening and scattered g roundglass opacities in right upper lobe not significantly changed in size and appearance from previo us study. Additional scattered areas of interstitial nodular thickening are again seen scattered in t he periphery of bilateral mid to lower lung munoz not significantly changed from prior study. No ple ural effusions or pneumothorax. Central and peripheral airways are patent and normal in caliber. Mediastinum: Heart size is normal. No pericardial effusion. No mediastinal or hilar adenopathy by size criteria. Thoracic aorta and central pulmonary arteries are normal in size. Esophagus is hao l in caliber. No hiatal hernia. Bones and chest wall: No suspicious bony lesions. No vertebral body compression fractures. No axil ghazala or supraclavicular adenopathy by size criteria. Thyroid gland there is unremarkable. Abdomen: Visualized upper abdominal solid organs appear normal. Upper abdominal bowel loops are nor mal in caliber. Hepatic steatosis is again seen. IMPRESSION: 1. No significant changes from previous study. Stable appearing interstitial thickening and groundgla ss opacities in right apex and scattered in periphery of bilateral mid to lower lung munoz most cons istent with chronic interstitial lung disease. No new area of airspace opacity is seen. No pleural ef fusion or pneumothorax. Airway is patent. 2. No mediastinal or hilar lymphadenopathy. Reviewed by: Joe Rush MD on 10/05/2020 1:13 PM [place] Approved by: Joe Rush MD on 10/05/2020 1:13 PM [place] Station ID: [id number]
== END 2020-10-05 08:43 | disposition home or self-care (01) ==
LOC: DI 08:42
PROVIDERS: ATTEND Internal Medicine
DX: R93.89 Abnormal findings on diagnostic imaging of other specified body structures (principal)
CPT/HCPCS: 71260; Q9967

== ENCOUNTER 2021-01-03 10:16 | Outpatient (CLI) | payer OTHER ==
--- NOTE | 2021-01-04 10:12 | Mammography Report ---
BILATERAL DIGITAL SCREENING MAMMOGRAM 3D/2D: 01/03/2021 CLINICAL: Routine Screening. Comparison is made to exams dated: 07/08/2019 mammogram, 06/15/2018 mammogram, 09/07/2012 mammogram, a nd 01/28/2010 mammogram - [facility]. The tissue of both breasts is extremely dense, which lowers the sensitivity of mammography. No significant masses, calcifications, or other findings are seen in either breast. There has been no significant interval change. IMPRESSION: NEGATIVE There is no mammographic evidence of malignancy. A 1 year screening mammogram is recommended. This exam was interpreted at Station ID: [id number]. NOTE: For mammograms, a report in lay terms will be sent to the patient. Approximately 15% of breast malignancies will not be visualized mammographically. In the management of a palpable breast mass, a negative mammogram must not discourage biopsy of a clinically suspicious lesion. Electronically Signed By: Paulie Lomas M.D. ddp/penrad:01/03/2021 11:18:43 ACR BI-RADS Category 1: Negative 3341F PARENCHYMAL PATTERN: (VD) - The breast(s) demonstrate(s) extremely dense parenchyma, limiting the sen sitivity of mammography. BI-RADS CATEGORY: (1) - 1 RECOMMENDATION: (ANNUAL) - Recommend routine annual screening mammography. [id number] 1 year screening LATERALITY: (B)
== END 2021-01-03 10:17 | disposition home or self-care (01) ==
LOC: DI.N 10:16
DX: Z12.31 Encounter for screening mammogram for malignant neoplasm of breast (principal)

== ENCOUNTER 2021-02-22 11:47 | Outpatient (CLI) | payer OTHER ==
--- NOTE | 2021-02-22 16:53 | XRAY Report ---
PROCEDURE: Ankle 3 View LT INDICATIONS: SPRAIN OF LEFT ANKLE TECHNIQUE: 3 views of the ankle were acquired. COMPARISON: None FINDINGS: Bones: No fractures or dislocations. Ankle mortise is normally aligned. No suspicious bony lesions . Soft tissues: No tibiotalar joint effusion. Achilles tendon appears normal. Lateral soft tissue swe lling is noted and ligamentous injury cannot be excluded. IMPRESSION: No fracture. No osseous lesion. If there are persistent symptoms or continued clinical concern for pa thology, then repeat plain film radiographs (7-10 days) or advanced imaging (CT, MR, bone scan) shoul d be considered for further evaluation. Reviewed by: Maame Capellan MD, PhD on 02/22/2021 4:52 PM PDT Approved by: Maame Capellan MD, PhD on 02/22/2021 4:52 PM PDT Station ID: [id number]
== END 2021-02-22 23:59 | disposition home or self-care (01) ==
LOC: DI.N 11:47
PROVIDERS: ATTEND Physician Assistant Medical
DX: S93.402A Sprain of unspecified ligament of left ankle, initial encounter (principal)

== ENCOUNTER 2021-03-15 08:00 | Outpatient (CLI) | payer OTHER | END 2021-03-15 08:01 | disposition home or self-care (01) | LOC: LAB.N 08:00 | PROVIDERS: ATTEND Family Medicine | DX: M79.662 Pain in left lower leg (principal) | CPT/HCPCS: 36415; 85379 ==

== ENCOUNTER 2021-03-15 11:30 | Outpatient (CLI) | payer OTHER ==
--- NOTE | 2021-03-15 13:28 | XRAY Report ---
PROCEDURE: Femur 2V LT INDICATIONS: LEG PAIN, LEFT TECHNIQUE: 2 views of the femur were acquired. COMPARISON: None. FINDINGS: Bones: No fractures or dislocations. No suspicious bony lesions. Soft tissues: No suspicious soft tissue calcifications or masses. IMPRESSION: No acute fracture. No osseous lesion. If symptoms and/or clinical suspicion for pathology continue, f urther assessment with repeat plain films, or advanced imaging (e.g., CT, MRI, or bone scan) is recom mended for further assessment. Reviewed by: Becka Bejarano MD on 03/15/2021 1:27 PM PDT Approved by: Becka Bejarano MD on 03/15/2021 1:27 PM PDT Station ID: [id number]
--- NOTE | 2021-03-15 13:30 | XRAY Report ---
PROCEDURE: Tib/Fib LT INDICATIONS: LEG PAIN, LEFT TECHNIQUE: 2 views of the tibia and fibula were acquired. COMPARISON: 02/22/2021 plain films. FINDINGS: Bones: No fractures or dislocations. No suspicious bony lesions. Soft tissues: No suspicious soft tissue calcifications or masses. IMPRESSION: No acute fracture. No osseous lesion. If symptoms and/or clinical suspicion for pathology continue, f urther assessment with repeat plain films, or advanced imaging (e.g., CT, MRI, or bone scan) is recom mended for further assessment. Reviewed by: Becka Bejarano MD on 03/15/2021 1:29 PM PDT Approved by: Becka Bejarano MD on 03/15/2021 1:29 PM PDT Station ID: [id number]
== END 2021-03-15 23:59 | disposition home or self-care (01) ==
LOC: DI.N 11:30
PROVIDERS: ATTEND Family Medicine
DX: M79.605 Pain in left leg (principal)

== ENCOUNTER 2021-07-08 12:30 | Emergency (ER) | payer OTHER ==
[2021-07-08] MEDS ORDERED: ALBUTEROL NEB 2.5 MG/3 ML INH STA (14:27)
--- NOTE | 2021-07-08 14:31 | XRAY Report ---
PROCEDURE: Chest 1 View X-Ray INDICATIONS: chest pain TECHNIQUE: One view of the chest was acquired. COMPARISON: Chest CT 10/05/2020, chest radiographs 02/14/2020 FINDINGS: Surgical changes and devices: None. Lungs and pleura: No pleural effusions or pneumothorax. Chronic reticulations are redemonstrated in the right upper lobe. No acute airspace opacity. Mediastinum: Mediastinal contours appear normal. Heart size is normal. Bones and chest wall: No suspicious bony lesions. Overlying soft tissues appear unremarkable. IMPRESSION: No acute cardiopulmonary abnormality. Reviewed by: Tashi Bunch MD on 07/08/2021 2:30 PM PDT Approved by: Tashi Bunch MD on 07/08/2021 2:30 PM PDT Station ID: [id number]
[2021-07-08 14:33] LABS: BASOPHILS # (AUTO) 0.1 10^3/uL (0.0-0.1); BASOPHILS % (AUTO) 0.6 %; EOSINOPHILS # (AUTO) 0.2 10^3/uL (0.0-0.7); HCT - HEMATOCRIT 40.2 % (37.0-47.0); HGB - HEMOGLOBIN 13.6 g/dL (12.0-16.0); LYMPHOCYTES % (AUTO) 25.8 %; MEAN CORPUSCULAR HEMOGLOBIN 31.1 pg (27.0-31.0); MEAN CORPUSCULAR HGB CONC 33.8 g/dL (32.0-36.0); MEAN CORPUSCULAR VOLUME 91.8 fL (81.0-99.0); MEAN PLATELET VOLUME 9.4 fL (7.9-10.8); MONOCYTES # (AUTO) 0.7 10^3/uL (0.0-1.0); MONOCYTES % (AUTO) 8.5 %; NEUTROPHILS # (AUTO) 4.9 10^3/uL (1.5-6.6); NEUTROPHILS % (AUTO) 61.7 %; PLT - PLATELET COUNT 326 10^3/uL (130-450); RED BLOOD COUNT 4.38 10^6/uL (4.20-5.40); RED CELL DISTRIBUTION WIDTH 11.9 % (12.0-15.0); WHITE BLOOD COUNT 7.9 x10^3/uL (4.8-10.8)
--- NOTE | 2021-07-08 14:42 | ED Physician Documentation ---
PD HPI DYSPNEA - Stated complaint Stated Complaint: SOA, REFERRED FROM [facility] - Chief complaint Chief Complaint: Resp - History obtained from History obtained from: Patient - History of Present Illness Pain level max: 0 Pain level now: 0 Associated symptoms: No: Fever, Cough, Hemoptysis, Wheezing, Chest pain / discomfort, Palpitations, Diaphoresis, Bilateral edema, Unilateral edema Similar symptoms before: Diagnosis (chronic interstitial lung disease) - Additional information Additional information: Patient is a 56-year-old female who appears to have chronic interstitial lung disease on prior CT scans of the chest who states she has been feeling increasingly short of breath over the past few days. Nothing makes it better or worse. No fevers. No chills. No cough. No chest pain. No congestion. No syncope or near syncope. No lightheadedness or dizziness. [facility] who sent her here for unclear reasons. Patient states she feels normal now and feels comfortable. Review of Systems Constitutional: denies: Fever, Chills GI: denies: Vomiting, Diarrhea Musculoskeletal: denies: Neck pain, Back pain Neurologic: denies: Headache PD PAST MEDICAL HISTORY - Past Medical History Cardiovascular: Hypertension Respiratory: None Neuro: None Endocrine/Autoimmune: None GI: None UTILITY TECH: None : None HEENT: None Psych: Depression, Anxiety Musculoskeletal: None Derm: None - Past Surgical History Past Surgical History: No - Present Medications Home Medications: Ambulatory Orders Medication Instructions Recorded Confirmed Losartan/Hydrochlorothiazide 1 tab PO DAILY 10/14/16 10/14/16 [Losartan-Hctz 100-12.5 mg Tab] Atorvastatin [Lipitor] 40 mg pe DAILY 09/23/20 09/23/20 Omeprazole 20 mg DAILY 09/23/20 09/23/20 Sertraline [Zoloft] 09/23/20 Albuterol Sulf [Ventolin Hfa 1 - 2 puffs INH Q4HR PRN #1 inhaler 07/08/21 Inhaler] - Allergies Allergies/Adverse Reactions: Allergies Allergy/AdvReac Type Severity Reaction Status Date / Time No Known Drug Allergies Allergy Verified 07/08/21 12:44 - Social History Does the pt smoke?: No Smoking Status: Never smoker Does the pt drink ETOH?: Yes Does the pt have substance abuse?: No - Immunizations Immunizations are current?: Yes - POLST Patient has POLST: No PD ED PE NORMAL - Vitals Vital signs reviewed: Yes - General General: Alert and oriented X 3, No acute distress - HEENT HEENT: Moist mucous membranes - Neck Neck: Supple, no meningeal sign - Cardiac Cardiac: RRR - Respiratory Respiratory: No respiratory distress, Clear bilaterally - Derm Derm: Warm and dry - Extremities Extremities: No edema, No calf tenderness / cord - Neuro Neuro: Alert and oriented X 3 Results - Vitals Vitals: Vital Signs - 24 hr 07/08/21 07/08/21 07/08/21 12:44 14:42 14:48 Temperature 36.5 C Heart Rate 52 L 64 70 Respiratory 16 22 18 Rate Blood Pressure 133/67 H 115/58 L O2 Saturation 100 99 Oxygen O2 Source Room air - EKG (time done) 1411 Rate: Rate (enter#) (51) Rhythm: NSR [place]: Normal Intervals: Normal [place] QRS: Normal Ischemia: Normal ST segments - Labs Labs: Laboratory Tests 07/08/21 07/08/21 07/08/21 14:27 14:27 14:27 WBC 7.9 RBC 4.38 Hgb 13.6 Hct 40.2 MCV 91.8 MCH 31.1 H MCHC 33.8 RDW 11.9 L Plt Count 326 MPV 9.4 Neut # (Auto) 4.9 Lymph # (Auto) 2.0 [place] # (Auto) 0.7 Eos # (Auto) 0.2 Baso # (Auto) 0.1 Absolute Nucleated RBC 0.00 Nucleated RBC % 0.0 Sodium 138 Potassium 2.9 L Chloride 98 L Carbon Dioxide 29 Anion Gap 11.0 BUN 15 Creatinine 0.6 Estimated GFR (MDRD) 104 Glucose 154 H Calcium 9.4 Total Bilirubin 0.8 AST 37 ALT 42 Alkaline Phosphatase 57 B-Natriuretic Peptide 51 Total Protein 7.7 Albumin 4.1 Globulin 3.6 Albumin/Globulin Ratio 1.1 Lipase 38 - Rads (name of study) cxr Radiology: Final report received, EMP read contemporaneously, See rad report (No acute cardiopulmonary abnormality) PD MEDICAL DECISION MAKING - ED course Complexity details: reviewed old records (HR varies between 47-62 on prior visits. ), reviewed results, re-evaluated patient, considered differential, d/w patient ED course: Patient feels much better after breathing treatment. Shortness of breath resolved. Likely secondary to her chronic interstitial lung disease. Will place on inhaler for home. Patient has chronic mild bradycardia, asymptomatic. Patient counseled regarding signs and symptoms for which I believe and urgent re-evaluation would be necessary. Patient with good understanding of and agreement to plan and is comfortable going home at this time This document was made in part using voice recognition software. While efforts are made to proofread this document, sound alike and grammatical errors may occur. Departure - Departure Disposition: Home, Self Care Clinical Impression: Chronic interstitial lung disease Condition: Good Instructions: ED Reactive Airway Disease Follow-Up: your,doctor in 1 week [Other] Prescriptions: Albuterol Sulf [Ventolin Hfa Inhaler] 1 - 2 puffs INH Q4HR PRN #1 inhaler PRN Reason: Shortness Of Air/Wheezing Comments: Please follow-up with your doctor for further care. Your prescriptions were sent to [facility] in [place]. Return if you worsen. Discharge Date/Time: 07/08/21 15:46
[2021-07-08 14:45] LABS: ALBUMIN 4.1 g/dL (3.2-5.5); ALBUMIN/GLOBULIN RATIO 1.1 (1.0-2.2); BILIRUBIN,TOTAL 0.8 mg/dL (0.2-1.0); CALCIUM 9.4 mg/dL (8.5-10.3); CREATININE 0.6 mg/dL (0.4-1.0); POTASSIUM 2.9 mmol/L (3.5-5.0); TOTAL PROTEIN 7.7 g/dL (6.7-8.2)
[2021-07-08 14:55] VITALS: BP 115/58
[2021-07-08] MEDS ORDERED: POTASSIUM CHLORIDE 20 MEQ TABLET PO STA (15:03)
== END 2021-07-08 15:46 | disposition home or self-care (01) ==
LOC: ED 12:30
DX: J84.9 Interstitial pulmonary disease, unspecified (principal)
CPT/HCPCS: 36415; 71045; 80053; 83690; 83880; 85025; 93005; 94640; 99283; 99284; A9270

== ENCOUNTER 2021-07-17 23:12 | Emergency (ER) | payer OTHER ==
[2021-07-17] MEDS ORDERED: cloNIDine 0.1 MG TABLET PO STA (23:46)
--- NOTE | 2021-07-17 23:50 | ED Physician Documentation ---
History of Present Illness - Stated complaint Stated Complaint: HIGH BP - Chief complaint Chief Complaint: General - History obtained from History obtained from: Patient - Additonal information Additional information: 56yF with pmh htn on los/hctz 100/12.5 p/w elevated BP reading from home. Patient states she couldn't sleep so she thought her BP might be high. she took it and it was 189 systolic, took it again and it was the same, then took a third time and it was 205/91 so she asked her family to bring her to the emergency department. patient states she feels bloated, is having some epigastric pain she attributes to acid reflux,, and feels like her fingers are numb. denies cp, soa, n/v vision changes or headache. she did have a headache earlier that resolved with tylenol. Note that patient was placed on potassium supplement recently due to low serum potassium. Review of Systems Ten Systems: 10 systems reviewed and negative Constitutional: denies: Fever, Chills Cardiac: denies: Chest pain / pressure Respiratory: denies: Dyspnea GI: reports: Abdominal Pain. 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 : None HEENT: None Psych: Depression, Anxiety Musculoskeletal: None Derm: None - Past Surgical History Past Surgical History: No - Present Medications Home Medications: Ambulatory Orders Medication Instructions Recorded Confirmed Losartan/Hydrochlorothiazide 1 tab PO DAILY 10/14/16 10/14/16 [Losartan-Hctz 100-12.5 mg Tab] Atorvastatin [Lipitor] 40 mg pe DAILY 09/23/20 09/23/20 Omeprazole 20 mg DAILY 09/23/20 09/23/20 Sertraline [Zoloft] 09/23/20 Albuterol Sulf [Ventolin Hfa 1 - 2 puffs INH Q4HR PRN #1 inhaler 07/08/21 Inhaler] - Allergies Allergies/Adverse Reactions: Allergies Allergy/AdvReac Type Severity Reaction Status Date / Time No Known Drug Allergies Allergy Verified 07/17/21 23:28 - Social History Does the pt smoke?: No Smoking Status: Never smoker Does the pt drink ETOH?: Yes Does the pt have substance abuse?: No - Immunizations Immunizations are current?: Yes - POLST Patient has POLST: No PD ED PE NORMAL - Vitals Vital signs reviewed: Yes - General General: Alert and oriented X 3, No acute distress, Well developed/nourished - HEENT HEENT: Atraumatic, PERRL, EOMI - Neck Neck: Supple, no meningeal sign - Cardiac Cardiac: RRR - Respiratory Respiratory: No respiratory distress, Clear bilaterally - Abdomen Abdomen: Non tender, Non distended - Derm Derm: Normal color, Warm and dry - Extremities Extremities: No deformity - Neuro Neuro: Alert and oriented X 3 - Psych Psych: Normal mood, Normal affect Results - Vitals Vitals: Vital Signs - 24 hr 07/17/21 07/17/21 07/18/21 23:23 23:54 00:17 Temperature 36.7 C Heart Rate 71 62 65 Respiratory 16 16 16 Rate Blood Pressure 189/89 H 170/88 H 153/95 H O2 Saturation 98 97 98 07/18/21 00:47 Temperature Heart Rate 55 L Respiratory 14 Rate Blood Pressure 155/75 H O2 Saturation 98 Oxygen O2 Source Room air - EKG (time done) 2329 Rate: Rate (enter#) (68) Rhythm: NSR [place]: Normal Intervals: Normal [place] QRS: Normal Ischemia: Normal ST segments Computer interpretation: Agree with computer - Labs Labs: Laboratory Tests 07/17/21 07/17/21 07/17/21 23:53 23:53 23:53 WBC 8.6 RBC 4.31 Hgb 13.4 Hct 39.2 MCV 91.0 MCH 31.1 H MCHC 34.2 RDW 11.7 L Plt Count 259 MPV 9.1 Neut # (Auto) 5.1 Lymph # (Auto) 2.2 [place] # (Auto) 1.0 Eos # (Auto) 0.3 Baso # (Auto) 0.1 Absolute Nucleated RBC 0.00 Nucleated RBC % 0.0 Sodium 137 Potassium 3.1 L Chloride 99 L Carbon Dioxide 28 Anion Gap 10.0 BUN 26 H Creatinine 0.7 Estimated GFR (MDRD) 87 L Glucose 109 H Calcium 9.6 Total Bilirubin 0.6 AST 33 ALT 40 Alkaline Phosphatase 46 Troponin I High Sens 6.2 Total Protein 8.0 Albumin 4.3 Globulin 3.7 Albumin/Globulin Ratio 1.2 Lipase 47 PD MEDICAL DECISION MAKING - ED course ED course: 56yF with pmh htn p/w elevated BP reading from home as well as acid reflux. ekg WNL. will obtain labwork, xr, reevaluate. BP significantly improved in the emergency department. patient states she feels fine and abdominal pain has resolved. return precautions discussed. plan to f/u with PMD. HEART score 2 (age, risk factors). Departure - Departure Disposition: Home, Self Care Clinical Impression: Hypertension, Tingling in extremities, Epigastric pain Condition: Good Instructions: Hypertension Control Comments: You were seen in the emergency department for high blood pressure and stomach pain. Your EKG, chest x-ray, and blood tests did not show an emergent cause. You do still need to take your potassium supplements and you should follow-up with your primary doctor. Make sure you take potassium on a full stomach because it can irritate the stomach. Return to the emergency department you have any new or worsening symptoms or other concerns.
[2021-07-18] LABS: BASOPHILS # (AUTO) 0.1 10^3/uL (0.0-0.1); BASOPHILS % (AUTO) 0.7 %; EOSINOPHILS # (AUTO) 0.3 10^3/uL (0.0-0.7); EOSINOPHILS % (AUTO) 3.4 %; HCT - HEMATOCRIT 39.2 % (37.0-47.0); HGB - HEMOGLOBIN 13.4 g/dL (12.0-16.0); LYMPHOCYTES # (AUTO) 2.2 10^3/uL (1.5-3.5); LYMPHOCYTES % (AUTO) 25.2 %; MEAN CORPUSCULAR HEMOGLOBIN 31.1 pg (27.0-31.0); MEAN CORPUSCULAR HGB CONC 34.2 g/dL (32.0-36.0); MEAN PLATELET VOLUME 9.1 fL (7.9-10.8); MONOCYTES % (AUTO) 11.6 %; NEUTROPHILS # (AUTO) 5.1 10^3/uL (1.5-6.6); NEUTROPHILS % (AUTO) 58.9 %; PLT - PLATELET COUNT 259 10^3/uL (130-450); RED BLOOD COUNT 4.31 10^6/uL (4.20-5.40); RED CELL DISTRIBUTION WIDTH 11.7 % (12.0-15.0); WHITE BLOOD COUNT 8.6 x10^3/uL (4.8-10.8)
[2021-07-18 00:14] LABS: ALBUMIN 4.3 g/dL (3.2-5.5); ALBUMIN/GLOBULIN RATIO 1.2 (1.0-2.2); BILIRUBIN,TOTAL 0.6 mg/dL (0.2-1.0); CALCIUM 9.6 mg/dL (8.5-10.3); CREATININE 0.7 mg/dL (0.4-1.0); POTASSIUM 3.1 mmol/L (3.5-5.0)
--- NOTE | 2021-07-18 00:15 | XRAY Report ---
PROCEDURE: Chest 1 View X-Ray INDICATIONS: Chest Pain TECHNIQUE: One view of the chest was acquired. COMPARISON: 07/08/2021 FINDINGS: Surgical changes and devices: None. Lungs and pleura: No pleural effusions or pneumothorax. But there is no focal infiltrate. Likely chr onic increased interstitial reticular lung markings are noted not significantly changed from prior st udy. Mediastinum: Mediastinal contours appear normal. Heart size is enlarged. Bones and chest wall: No suspicious bony lesions. Overlying soft tissues appear unremarkable. IMPRESSION: No acute cardiopulmonary pathology. Suggestion of chronic interstitial lung disease. Reviewed by: Joe Francis MD on 07/18/2021 12:13 AM PDT Approved by: Joe Francis MD on 07/18/2021 12:13 AM PDT Station ID: [id number]
[2021-07-18 01:07] VITALS: BP 147/86
== END 2021-07-18 01:20 | disposition home or self-care (01) ==
LOC: ED 23:12
DX: I10 Essential (primary) hypertension (principal); R10.13 Epigastric pain; R20.2 Paresthesia of skin
CPT/HCPCS: 36415; 71045; 80053; 83690; 84484; 85025; 93005; 99283; 99284; A9270

== ENCOUNTER 2021-07-21 21:03 | Emergency (ER) | payer OTHER ==
--- NOTE | 2021-07-21 21:18 | ED Physician Documentation ---
PD HPI DYSPNEA - Stated complaint Stated Complaint: HIGH BP - Chief complaint Chief Complaint: Cardiac - History obtained from History obtained from: Patient - History of Present Illness Timing - onset: How many weeks ago (Patient states she is having episodic high blood pressure over the last 2 to 3 weeks. She states her blood pressure has been 140s to 150s systolic and 85-100 diastolic most of the time with episodes up to 188/110. The higher blood pressure is associated with some mild headache but mostly anxiety.) Timing - onset during: Other (took her BP this evening and noted it 188/110, which concerned her. She developed some pressure feeling headache (did not have it prior). No unusual salt intake nor activity today.) Inciting event(s): No: Out of meds Worsened by: No: Exertion Associated symptoms: No: Fever, Cough, Wheezing, Palpitations, Bilateral edema Recently seen: Emergency Dept (She has been seen here 2 times in the past 2 weeks for high blood pressure episodes. Blood testing had been done on both along with EKG and chest x-ray. No change in her blood pressure medicines as it was deferred to her primary. For appointment with her primary is July 31.) Review of Systems Constitutional: denies: Fever Nose: denies: Rhinorrhea / runny nose, Congestion Throat: denies: Sore throat Cardiac: denies: Chest pain / pressure Respiratory: reports: Dyspnea (mild with activity). denies: Cough, Wheezing GI: denies: Abdominal Pain (not currently; had had some epigastric pain several days ago, thought related to potassium supplement on empty stomach. Has not had further symptoms, taking it with food.), Nausea, Vomiting Musculoskeletal: denies: Extremity swelling Neurologic: reports: Headache (mild pressure feeling). 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 : None HEENT: None Psych: Depression, Anxiety Musculoskeletal: None Derm: None - Past Surgical History Past Surgical History: No - Present Medications Home Medications: Ambulatory Orders Medication Instructions Recorded Confirmed Losartan/Hydrochlorothiazide 1 tab PO DAILY 10/14/16 10/14/16 [Losartan-Hctz 100-12.5 mg Tab] Atorvastatin [Lipitor] 40 mg pe DAILY 09/23/20 09/23/20 Omeprazole 20 mg DAILY 09/23/20 09/23/20 Sertraline [Zoloft] 09/23/20 Albuterol Sulf [Ventolin Hfa 1 - 2 puffs INH Q4HR PRN #1 inhaler 07/08/21 Inhaler] amLODIPine [Norvasc] 5 mg PO DAILY 30 Days #30 tablet 07/21/21 - Allergies Allergies/Adverse Reactions: Allergies Allergy/AdvReac Type Severity Reaction Status Date / Time No Known Drug Allergies Allergy Verified 07/21/21 21:07 - Social History Does the pt smoke?: No Smoking Status: Never smoker Does the pt drink ETOH?: Yes Does the pt have substance abuse?: No - Immunizations Immunizations are current?: Yes - POLST Patient has POLST: No PD ED PE NORMAL - Vitals Vital signs reviewed: Yes - General General: Alert and oriented X 3, No acute distress, Well developed/nourished - Cardiac Cardiac: RRR, No murmur - Respiratory Respiratory: Clear bilaterally - Abdomen Abdomen: Soft, Non tender - Derm Derm: Normal color, Warm and dry - Extremities Extremities: No edema, No calf tenderness / cord - Neuro Neuro: Alert and oriented X 3, No motor deficit, Normal speech Results - Vitals Vitals: Vital Signs - 24 hr 07/21/21 21:07 Temperature 36.5 C Heart Rate 69 Respiratory 16 Rate Blood Pressure 180/70 H O2 Saturation 96 Oxygen O2 Source Room air - Labs Labs: Laboratory Tests 07/21/21 21:39 Sodium 141 Potassium 2.9 L Chloride 100 L Carbon Dioxide 29 Anion Gap 12.0 BUN 18 Creatinine 0.7 Estimated GFR (MDRD) 87 L Glucose 114 H Calcium 9.9 Magnesium 2.0 Total Bilirubin 0.5 AST 34 ALT 39 Alkaline Phosphatase 51 Total Protein 8.1 Albumin 4.3 Globulin 3.8 Albumin/Globulin Ratio 1.1 Lipase 44 PD MEDICAL DECISION MAKING - ED course Complexity details: re-evaluated patient (I discussed with the patient that we do not really want her blood pressure to come down quickly as I will potentially cause more harm. She has had blood pressure high normal with episodes being elevated and concerning for her. I presume her primary will likely start a new second blood pressure med.), considered differential (She has had 2 recent visits in the last 2 weeks related to high blood pressure. She had labs done as well as EKG and chest x-ray. She had had some mildly low potassium and is on an oral supplement. Renal function was okay. We can reassess electrolytes but otherwise I do not feel much testing.), d/w patient ED course: Can start her on a second line blood pressure medicine now in addition to her losartan/HCTZ. She is already at 100 mg of the losartan. She does not have much edema and has had some low potassium so I would leave the diuretic dose as is. We can start a second medication of amlodipine for now. That can be reassessed by her primary at her upcoming appointment on the July 31. Departure - Departure Disposition: Home, Self Care Clinical Impression: Hypokalemia High blood pressure Qualifiers: Hypertension type: unspecified Qualified Code(s): I10 - Essential (primary) hypertension Condition: Stable Record reviewed to determine appropriate education?: Yes Follow-Up: Dennis Garcia MD [Primary Care Provider] - Prescriptions: amLODIPine [Norvasc] 5 mg PO DAILY 30 Days #30 tablet Comments: Potassium level is still low despite your supplement. It likely is low because of the hydrochlorothiazide water pill. The low potassium does affect the ef fectiveness of some of your blood pressure medicines and blood pressure regulation. At this point I would suggest trying change of medications. For now until your follow-up appointment on July 31, I would suggest: Continue your losartan 100 mg daily Discontinue your hydrochlorothiazide for now Add amlodipine 5 mg daily Check your blood pressure once or twice daily but no more than that and record it from now until your appointment. At that point your primary care can review how your blood pressure is doing and also in the extent of fluid retention and decide on keeping the same medicines versus increased doses or resuming the diuretic what ever they see best. I transmitted the prescription to [facility] pharmacy in [place].
[2021-07-21] MEDS ORDERED: ACETAMINOPHEN 325 MG TABLET PO STA (21:30)
[2021-07-21] MEDS ORDERED: amLODIPine 5 MG TABLET PO STA (21:30)
[2021-07-21 22:05] LABS: ALBUMIN 4.3 g/dL (3.2-5.5); ALBUMIN/GLOBULIN RATIO 1.1 (1.0-2.2); BILIRUBIN,TOTAL 0.5 mg/dL (0.2-1.0); CALCIUM 9.9 mg/dL (8.5-10.3); CREATININE 0.7 mg/dL (0.4-1.0); POTASSIUM 2.9 mmol/L (3.5-5.0); TOTAL PROTEIN 8.1 g/dL (6.7-8.2)
[2021-07-21 22:24] VITALS: BP 135/66
== END 2021-07-21 22:23 | disposition home or self-care (01) ==
LOC: ED 21:03
DX: I10 Essential (primary) hypertension (principal); E87.6 Hypokalemia
CPT/HCPCS: 36415; 80053; 83690; 83735; 99283; A9270

== ENCOUNTER 2021-08-13 21:36 | Emergency (ER) | payer OTHER ==
--- NOTE | 2021-08-13 21:58 | ED Physician Documentation ---
History of Present Illness - Stated complaint Stated Complaint: IRREGULAR BLOOD PRESSURE - Chief complaint Chief Complaint: Cardiac - History obtained from History obtained from: Patient - Additonal information Additional information: 56-year-old woman with past medical history of high blood pressure with multiple emergency room visits for this, presents with concerns that her blood pressure has been high today. Also states she has a mild bilateral frontal headache that is nonradiating aching, gradual onset. Also with bilateral neck pain. Denies chest pain, shortness of breath, dizziness, diaphoresis. 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 : None HEENT: None Psych: Depression, Anxiety Musculoskeletal: None Derm: None - Past Surgical History Past Surgical History: No - Present Medications Home Medications: Ambulatory Orders Medication Instructions Recorded Confirmed Atorvastatin [Lipitor] 40 mg pe DAILY 09/23/20 08/13/21 Sertraline [Zoloft] 100 mg PO QID 09/23/20 Albuterol Sulf [Ventolin Hfa 1 - 2 puffs INH Q4HR PRN #1 inhaler 07/08/21 08/13/21 Inhaler] amLODIPine [Norvasc] 5 mg PO DAILY 30 Days #30 tablet 07/21/21 08/13/21 Chlorthalidone 25 mg PO QID 08/13/21 08/13/21 Losartan Potassium [Cozaar] 100 mg PO QID 08/13/21 08/13/21 - Allergies Allergies/Adverse Reactions: Allergies Allergy/AdvReac Type Severity Reaction Status Date / Time No Known Drug Allergies Allergy Verified 07/21/21 21:07 - Social History Does the pt smoke?: No Smoking Status: Never smoker Does the pt drink ETOH?: Yes Does the pt have substance abuse?: No - Immunizations Immunizations are current?: Yes - POLST Patient has POLST: No PD ED PE NORMAL - Vitals Vital signs reviewed: Yes - General General: Alert and oriented X 3, No acute distress, Well developed/nourished - HEENT HEENT: Atraumatic, PERRL, EOMI - Neck Neck: Supple, no meningeal sign, Other (BL neck discomfort in trapezius muscle distribution) - Cardiac Cardiac: RRR - Respiratory Respiratory: No respiratory distress - Abdomen Abdomen: Non tender, Non distended - Back Back: No CVA TTP - Derm Derm: Normal color - Extremities Extremities: No deformity - Neuro Neuro: Alert and oriented X 3, tilting head band sawyer 2-12 intact, No motor deficit, No sensory deficit, Normal speech - Psych Psych: Normal affect, Other (mood stated as "stressed") Results - Vitals Vitals: Vital Signs - 24 hr 08/13/21 08/13/21 21:47 23:00 Temperature 36.7 C Heart Rate 68 49 L Respiratory 16 18 Rate Blood Pressure 186/76 H 143/79 H O2 Saturation 97 97 Oxygen O2 Source Room air - EKG (time done) 2146 Rate: Rate (enter#) (49) Rhythm: Sinus bradycardia Schroeder: Normal Intervals: Normal WI QRS: Normal Ischemia: Normal ST segments Compare to prior EKG: Unchanged from prior EKG (07/18/21) - Labs Labs: Laboratory Tests 08/13/21 08/13/21 08/13/21 22:09 22:09 22:09 WBC 8.7 RBC 4.56 Hgb 13.9 Hct 41.8 MCV 91.7 MCH 30.5 MCHC 33.3 RDW 11.9 L Plt Count 268 MPV 8.9 Neut # (Auto) 5.0 Lymph # (Auto) 2.5 [place] # (Auto) 0.8 Eos # (Auto) 0.3 Baso # (Auto) 0.0 Absolute Nucleated RBC 0.00 Nucleated RBC % 0.0 Sodium 134 L Potassium 4.1 Chloride 99 L Carbon Dioxide 29 Anion Gap 6.0 BUN 20 Creatinine 0.6 Estimated GFR (MDRD) 104 Glucose 109 H Calcium 9.6 Total Bilirubin 0.4 AST 31 ALT 39 Alkaline Phosphatase 48 Troponin I High Sens 5.6 Total Protein 7.9 Albumin 4.4 Globulin 3.5 Albumin/Globulin Ratio 1.3 Lipase 44 PD MEDICAL DECISION MAKING - ED course ED course: d/w patient need for f/u regarding lung nodule. patient has appointment with her pcp 08/23 and will bring the paperwork to her appointment so CT chest can be ordered outpatient. return precautions given. Departure - Departure Disposition: 01 Home, Self Care Clinical Impression: Lung nodule, Hypertension, Neck pain, Sinus bradycardia Condition: Good Instructions: ED Nodule Solitary Pulmonary Comments: You are seen in the emergency department for evaluation and found to have a lung nodule which needs a repeat CT scan. Your labwork and exam was otherwise normal. You do have a heart rate on the lower end of normal that sometimes dips into the 40s on our heart monitor so you should also see your doctor about this. Your EKG did not show any concerning findings. Please follow-up with your primary doctor Aug 23. Return to the emergency department for any new or worsening symptoms or other concerns.
[2021-08-13 22:13] LABS: BASOPHILS % (AUTO) 0.5 %; EOSINOPHILS # (AUTO) 0.3 10^3/uL (0.0-0.7); EOSINOPHILS % (AUTO) 3.5 %; HCT - HEMATOCRIT 41.8 % (37.0-47.0); HGB - HEMOGLOBIN 13.9 g/dL (12.0-16.0); LYMPHOCYTES # (AUTO) 2.5 10^3/uL (1.5-3.5); LYMPHOCYTES % (AUTO) 29.2 %; MEAN CORPUSCULAR HEMOGLOBIN 30.5 pg (27.0-31.0); MEAN CORPUSCULAR HGB CONC 33.3 g/dL (32.0-36.0); MEAN CORPUSCULAR VOLUME 91.7 fL (81.0-99.0); MEAN PLATELET VOLUME 8.9 fL (7.9-10.8); MONOCYTES # (AUTO) 0.8 10^3/uL (0.0-1.0); MONOCYTES % (AUTO) 9.1 %; NEUTROPHILS % (AUTO) 57.6 %; PLT - PLATELET COUNT 268 10^3/uL (130-450); RED BLOOD COUNT 4.56 10^6/uL (4.20-5.40); RED CELL DISTRIBUTION WIDTH 11.9 % (12.0-15.0); WHITE BLOOD COUNT 8.7 x10^3/uL (4.8-10.8)
[2021-08-13 22:30] LABS: ALBUMIN 4.4 g/dL (3.2-5.5); ALBUMIN/GLOBULIN RATIO 1.3 (1.0-2.2); BILIRUBIN,TOTAL 0.4 mg/dL (0.2-1.0); CALCIUM 9.6 mg/dL (8.5-10.3); CREATININE 0.6 mg/dL (0.4-1.0); POTASSIUM 4.1 mmol/L (3.5-5.0); TOTAL PROTEIN 7.9 g/dL (6.7-8.2)
--- NOTE | 2021-08-13 22:42 | XRAY Report ---
PROCEDURE: Chest 1 View X-Ray INDICATIONS: Chest Pain TECHNIQUE: One view of the chest was acquired. COMPARISON: 07/17/2021, and chest CT 10/05/2020 FINDINGS: Surgical changes and devices: None. Lungs and pleura: Mild chronic thickening of the interstitial markings without significant change sin ce prior study. There are no new dense consolidations, pleural effusions, or pneumothorax. There is s light prominence of an ill-defined nodule in the right upper lobe measuring about 7 mm. Mediastinum: Mediastinal contours appear normal. No central venous congestion. Heart size is stable at the upper limits of normal. Bones and chest wall: No suspicious bony lesions. Overlying soft tissues appear unremarkable. IMPRESSION: 1. Chronic interstitial thickening suggestive of interstitial lung disease versus interstitial edema. Correlate with BNP. 2. Stable heart size at the upper limits of normal. 3. Increased prominence of 7 mm right upper lobe lung nodule. Routine chest CT as an outpatient is re commended for reassessment. No nodule was present on the CT from 10/05/2020. Reviewed by: Casandra Cedillo MD on 08/13/2021 10:41 PM PDT Approved by: Casandra Cedillo MD on 08/13/2021 10:41 PM PDT Station ID: [id number]
[2021-08-13 23:34] VITALS: BP 148/71
== END 2021-08-13 23:44 | disposition home or self-care (01) ==
LOC: ED 21:36
DX: I10 Essential (primary) hypertension (principal); M54.2 Cervicalgia; R00.1 Bradycardia, unspecified; R91.1 Solitary pulmonary nodule
CPT/HCPCS: 36415; 80053; 83690; 84484; 85025; 93005; 99283; 99284

== ENCOUNTER 2021-10-28 08:00 | Outpatient (CLI) | payer OTHER ==
[2021-10-28 21:02] LABS: BASOPHILS # (AUTO) 0.1 10^3/uL (0.0-0.1); BASOPHILS % (AUTO) 0.7 %; EOSINOPHILS # (AUTO) 0.4 10^3/uL (0.0-0.7); EOSINOPHILS % (AUTO) 6.2 %; HCT - HEMATOCRIT 38.2 % (37.0-47.0); HGB - HEMOGLOBIN 12.7 g/dL (12.0-16.0); LYMPHOCYTES % (AUTO) 29.3 %; MEAN CORPUSCULAR HEMOGLOBIN 30.7 pg (27.0-31.0); MEAN CORPUSCULAR HGB CONC 33.2 g/dL (32.0-36.0); MEAN CORPUSCULAR VOLUME 92.3 fL (81.0-99.0); MEAN PLATELET VOLUME 10.1 fL (7.9-10.8); MONOCYTES # (AUTO) 0.5 10^3/uL (0.0-1.0); MONOCYTES % (AUTO) 7.2 %; NEUTROPHILS # (AUTO) 3.9 10^3/uL (1.5-6.6); NEUTROPHILS % (AUTO) 56.2 %; PLT - PLATELET COUNT 308 10^3/uL (130-450); RED BLOOD COUNT 4.14 10^6/uL (4.20-5.40); WHITE BLOOD COUNT 6.9 x10^3/uL (4.8-10.8)
[2021-10-28 21:17] LABS: BUN - BLOOD UREA NITROGEN 17 mg/dL (6-20); CALCIUM 9.7 mg/dL (8.5-10.3); CARBON DIOXIDE - CO2 29 mmol/L (21-32); CHLORIDE 107 mmol/L (101-111); CREATININE 0.6 mg/dL (0.4-1.0); GFR - MDRD 104 (>89); GLUCOSE 121 mg/dL (70-100); POTASSIUM 3.7 mmol/L (3.5-5.0); SODIUM 145 mmol/L (135-145); URIC ACID 5.4 mg/dL (2.6-7.2)
[2021-10-28 22:06] LABS: CRP - C-REACTIVE PROTEIN < 1.0 mg/dL (0-1.0)
[2021-10-28 22:49] LABS: RHEUMATOID FACTOR NEGATIVE (Negative)
[2021-10-31 11:46] LABS: ANA SCREEN NEGATIVE (NEGATIVE)
== END 2021-10-28 23:59 ==
LOC: LAB 08:00
PROVIDERS: ATTEND Family Medicine
DX: M79.642 Pain in left hand (principal); M79.641 Pain in right hand
CPT/HCPCS: 36415; 80048; 84550; 85025; 85651; 86038; 86140; 86200; 86430

== ENCOUNTER 2021-10-28 14:57 | Outpatient (CLI) | payer OTHER ==
--- NOTE | 2021-10-31 12:51 | XRAY Report ---
PROCEDURE: Hand 2 View BILAT INDICATIONS: BILATERAL HAND PX TECHNIQUE: 2 views of the hand(s) acquired. COMPARISON: None FINDINGS: Bones: No fractures or dislocations. No suspicious bony lesions. No appreciable joint space narrow ing, erosions or periarticular osteophytes. Soft tissues: No suspicious soft tissue calcifications. IMPRESSION: Unremarkable exam. Reviewed by: Nevin Samano MD on 10/31/2021 12:49 PM [facility] Approved by: Nevin Samano MD on 10/31/2021 12:49 PM [facility] Station ID: [id number]
== END 2021-10-28 14:58 | disposition home or self-care (01) ==
LOC: DI.N 14:57
PROVIDERS: ATTEND Family Medicine
DX: M79.641 Pain in right hand (principal); M79.642 Pain in left hand

== ENCOUNTER 2021-11-28 10:55 | Outpatient (CLI) | payer OTHER ==
--- NOTE | 2021-11-28 12:32 | CT Report ---
PROCEDURE: CHEST WO INDICATIONS: PULMONARY NODULE TECHNIQUE: Noncontrast 1mm axial images were acquired from the pulmonary apices to the posterior costophrenic an gles. Axial 5 mm soft tissue kernel reconstructions were performed as well as 8 mm axial MIP and cor onal and sagittal 5 mm reformations. For radiation dose reduction, the following was used: automate d exposure control, adjustment of mA and/or kV according to patient size. COMPARISON: CT chest 10/05/2020, 07/20/2020. FINDINGS: Image quality: Excellent. Lungs and pleura: There is reticular thickening most pronounced in the right lung. Overall this is un changed compared to June 2020. No honeycombing. There are a few areas of pleural calcification a nd thickening in the right lung which are also unchanged. There are a few small calcified granuloma. No pleural effusions or pneumothorax. Central and peripheral airways are patent and normal in calibe r. Mediastinum: Heart size is normal. No pericardial effusion. No mediastinal adenopathy by size crit eria. Thoracic aorta and central pulmonary arteries are normal in size. Esophagus is normal in evelio curt. No hiatal hernia. Bones and chest wall: No suspicious bony lesions. No vertebral body compression fractures. No axil ghazala or supraclavicular adenopathy by size criteria. Tiny left thyroid nodule. Abdomen: Visualized upper abdominal solid organs and bowel loops appear normal in the absence of con trast. Hepatic steatosis. No adrenal nodule. IMPRESSION: 1. Unchanged interstitial thickening most pronounced in the right lung compared to July 15, 2020 . This likely represents postinflammatory/infectious scarring or mild interstitial lung disease. 2. Mild pleural thickening and calcification. This could be seen in an prior asbestos exposure. 3. Hepatic steatosis. Reviewed by: Kobi Villanueva MD on 11/28/2021 12:31 PM PST Approved by: Kobi Villanueva MD on 11/28/2021 12:31 PM PST Station ID: [id number]
== END 2021-11-28 10:56 | disposition home or self-care (01) ==
LOC: DI 10:55
PROVIDERS: ATTEND Internal Medicine
DX: J84.9 Interstitial pulmonary disease, unspecified (principal); R91.1 Solitary pulmonary nodule; J92.9 Pleural plaque without asbestos; J94.8 Other specified pleural conditions; K76.0 Fatty (change of) liver, not elsewhere classified

== ENCOUNTER 2022-06-23 18:39 | Emergency (ER) | payer OTHER ==
[2022-06-23] MEDS ORDERED: KETOROLAC 30 MG/ML VIAL IVP STA (19:09)
[2022-06-23] MEDS ORDERED: LORazepam 2 MG/ML VIAL IVP STA (19:09)
--- NOTE | 2022-06-23 19:12 | ED Physician Documentation ---
History of Present Illness - Stated complaint Stated Complaint: HEADACHE, NECK PX - Chief complaint Chief Complaint: General - History obtained from History obtained from: Patient - History of Present Illness Timing: Today Pain level max: 5 Pain level now: 4 - Additonal information Additional information: Patient is a 57-year-old female who presents to the emergency department complaining of a gradual onset headache today while at work. She states she has headaches regularly. Took Motrin without relief. Has a history of gastritis and is having upper abdominal pain after taking Motrin as well. She states tingling to the bilateral hands. No fevers. No chills. Worse with light and sound, better with lying still. Patient also states that at times her vision feels blurry. Sometimes if she moves her eyes quickly she feels like she sees double. Denies any trauma. Denies any recent illnesses. No focal weakness or numbness. Review of Systems Ten Systems: 10 systems reviewed and negative Constitutional: denies: Fever, Chills Ears: denies: Ear pain Nose: denies: Rhinorrhea / runny nose, Congestion Cardiac: denies: Chest pain / pressure, Palpitations Respiratory: denies: Dyspnea, Cough GI: reports: Abdominal Pain (Epigastric, nonradiating, nothing makes it better or worse, burning.). 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 : None HEENT: None Psych: Depression, Anxiety Musculoskeletal: None Derm: None - Past Surgical History Past Surgical History: No - Present Medications Home Medications: Ambulatory Orders Medication Instructions Recorded Confirmed Atorvastatin [Lipitor] 40 mg pe DAILY 09/23/20 08/13/21 Sertraline [Zoloft] 100 mg PO QID 09/23/20 Albuterol Sulf [Ventolin Hfa 1 - 2 puffs INH Q4HR PRN #1 inhaler 07/08/21 08/13/21 Inhaler] amLODIPine [Norvasc] 5 mg PO DAILY 30 Days #30 tablet 07/21/21 08/13/21 Chlorthalidone 25 mg PO QID 08/13/21 08/13/21 Losartan Potassium [Cozaar] 100 mg PO QID 08/13/21 08/13/21 - Allergies Allergies/Adverse Reactions: Allergies Allergy/AdvReac Type Severity Reaction Status Date / Time No Known Drug Allergies Allergy Verified 06/23/22 18:45 - Social History Does the pt smoke?: No Smoking Status: Never smoker Does the pt drink ETOH?: Yes Does the pt have substance abuse?: No - Immunizations Immunizations are current?: Yes - POLST Patient has POLST: No PD ED PE NORMAL - Vitals Vital signs reviewed: Yes - General General: Alert and oriented X 3, No acute distress - HEENT HEENT: PERRL, EOMI, Ears normal, Moist mucous membranes, Pharynx benign, Other (No nystagmus) - Neck Neck: Supple, no meningeal sign, No bony TTP, Other (Full range of motion without pain) - Cardiac Cardiac: RRR, Strong equal pulses - Respiratory Respiratory: No respiratory distress, Clear bilaterally - Abdomen Abdomen: Soft, Non tender, Non distended - Back Back: No spinal TTP - Derm Derm: Warm and dry, No rash - Extremities Extremities: No edema, No calf tenderness / cord - Neuro Neuro: Alert and oriented X 3, organ pipe finisher 2-12 intact, No motor deficit, No sensory deficit, Normal speech, Other (Normal cerebellar testing. Normal gait) Eye Opening: Spontaneous Motor: Obeys Commands Verbal: Oriented GCS Score: 15 - Psych Psych: Normal mood, Normal affect Results - Vitals Vitals: Vital Signs - 24 hr 06/23/22 06/23/22 06/23/22 18:45 20:12 21:19 Temperature 36.5 C 36.2 C L Heart Rate 69 62 73 Respiratory 16 16 16 Rate Blood Pressure 160/70 H 152/76 H 104/67 O2 Saturation 98 95 100 Oxygen O2 Source Room air - Labs Labs: Laboratory Tests 06/23/22 06/23/22 19:15 19:15 WBC 8.5 RBC 4.23 Hgb 12.5 Hct 37.8 MCV 89.4 MCH 29.6 MCHC 33.1 RDW 12.4 Plt Count 264 MPV 9.3 Neut # (Auto) 5.3 Lymph # (Auto) 2.1 [place] # (Auto) 0.9 Eos # (Auto) 0.3 Baso # (Auto) 0.1 Absolute Nucleated RBC 0.00 Nucleated RBC % 0.0 Sodium 139 Potassium 3.5 Chloride 104 Carbon Dioxide 27 Anion Gap 8.0 BUN 20 Creatinine 0.7 Estimated GFR (MDRD) 87 L Glucose 107 H Calcium 9.4 Total Bilirubin 0.3 AST 34 ALT 39 Alkaline Phosphatase 82 Total Protein 7.5 Albumin 4.0 Globulin 3.5 Albumin/Globulin Ratio 1.1 Lipase 48 - Rads (name of study) Head CT Radiology: Final report received, EMP read contemporaneously, See rad report PD MEDICAL DECISION MAKING - ED course Complexity details: reviewed results, re-evaluated patient, considered differential, d/w patient, d/w family ED course: Patient is a 57-year-old female with multiple complaints. She was given Toradol and Ativan. All of her symptoms resolved. She feels much improved. No significant lab abnormalities. Unlikely that the headache was causing the visual disturbances. As the headache resolved the visual disturbances resolved as well. Her abdominal pain also resolved in the emergency department. Possible gastritis? She is currently being treated for this at home. Tolerating p.o. without difficulty. Abdomen is soft, nontender nondistended on serial exam. Normal neurological exam. Patient counseled regarding signs and symptoms for which I believe and urgent re-evaluation would be necessary. Patient with good understanding of and agreement to plan and is comfortable going home at this time This document was made in part using voice recognition software. While efforts are made to proofread this document, sound alike and grammatical errors may occur. Departure - Departure Disposition: 01 Home, Self Care Clinical Impression: Blurred vision Headache Qualifiers: Headache type: unspecified Headache chronicity pattern: acute headache Intractability: not intractable Qualified Code(s): R51.9 - Headache, unspecified Abdominal pain Qualifiers: Abdominal location: unspecified location Qualified Code(s): R10.9 - Unspecified abdominal pain Condition: Good Instructions: ED Abdominal Pain Female Non-Specific Abdominal Pain, ED Headache Tension Follow-Up: your,doctor in 1 week [Other] Comments: Please follow-up with your doctor for further care. Return if you worsen. Your testing does not show any acute abnormalities today. Your head CT is normal. Drink plenty of fluids and rest. Discharge Date/Time: 06/23/22 21:20
[2022-06-23 19:19] LABS: BASOPHILS # (AUTO) 0.1 10^3/uL (0.0-0.1); BASOPHILS % (AUTO) 0.6 %; EOSINOPHILS # (AUTO) 0.3 10^3/uL (0.0-0.7); EOSINOPHILS % (AUTO) 3.3 %; HCT - HEMATOCRIT 37.8 % (37.0-47.0); HGB - HEMOGLOBIN 12.5 g/dL (12.0-16.0); LYMPHOCYTES # (AUTO) 2.1 10^3/uL (1.5-3.5); LYMPHOCYTES % (AUTO) 24.2 %; MEAN CORPUSCULAR HEMOGLOBIN 29.6 pg (27.0-31.0); MEAN CORPUSCULAR HGB CONC 33.1 g/dL (32.0-36.0); MEAN CORPUSCULAR VOLUME 89.4 fL (81.0-99.0); MEAN PLATELET VOLUME 9.3 fL (7.9-10.8); MONOCYTES # (AUTO) 0.9 10^3/uL (0.0-1.0); NEUTROPHILS # (AUTO) 5.3 10^3/uL (1.5-6.6); NEUTROPHILS % (AUTO) 61.8 %; PLT - PLATELET COUNT 264 10^3/uL (130-450); RED BLOOD COUNT 4.23 10^6/uL (4.20-5.40); RED CELL DISTRIBUTION WIDTH 12.4 % (12.0-15.0); WHITE BLOOD COUNT 8.5 x10^3/uL (4.8-10.8)
[2022-06-23 19:36] LABS: ALBUMIN/GLOBULIN RATIO 1.1 (1.0-2.2); BILIRUBIN,TOTAL 0.3 mg/dL (0.2-1.0); CALCIUM 9.4 mg/dL (8.5-10.3); CREATININE 0.7 mg/dL (0.4-1.0); POTASSIUM 3.5 mmol/L (3.5-5.0); TOTAL PROTEIN 7.5 g/dL (6.7-8.2)
--- OUTSIDE RECORDS SUMMARY | 2022-06-23 19:37 | EXTERNAL MEDICAL SUMMARY RPT | Continuity of Care Document ---
:1965 Author Organization [facility] Address [address] [place] [address] Phone Allergies No information. Encounters No information. Functional Status No information. Immunizations No information. Medications No information. Problems No information. Procedures date description facility +0000 Visit Code Hold All [id number] Visit Code Hold All [id number] Dexamethasone Sodium Phosphate Inj 10m g/1mL All [id number]+0000 Med Administration (PO-SL-IN-OR) All Results/Labs No information. Social History No information. Vital Signs date measurement value units [id number] BMI BMI 30.81 kg/m2 [id number]+0000 BP_diastolic BP_diastolic 88 mm[H g] [id number]+0000 BP_systolic BP_systolic 145 mm[Hg] [id number]+0000 heart_rate heart_rate 72 /min [id number]+0000 height_metric height_metric 149.86 cm [id number]+0000 height_standard height_standard 59 in [id number]+0000 respiration_rate respiration_rate 14 /min [id number]+0000 temperature_metric temperature_metric 36.61 C [id number]+0000 temperature_standard temperature_standard 9 7.9 F [id number]+0000 weight_metric weight_metric 68.95 kg [id number]+0000 weight_standard weight_standard 152 lb
--- NOTE | 2022-06-23 20:54 | CT Report ---
PROCEDURE: HEAD WO INDICATIONS: headache, blurred vision TECHNIQUE: Noncontrast 4.5 mm thick angled axial sections acquired from the foramen magnum to the vertex. For r adiation dose reduction, the following was used: automated exposure control, adjustment of mA and/or kV according to patient size. COMPARISON: There is mild motion artifact limiting evaluation. FINDINGS: Image quality: Excellent. CSF spaces: Basal cisterns are patent. No extra-axial fluid collections. Ventricles are normal in size and shape. Brain: No definite intracranial hemorrhage, mass, or mass effect. Cruz-white matter interface appea rs preserved. Skull and face: Calvarium and visualized facial bones are intact, without suspicious lesions. Sinuses: Visualized sinuses and mastoids are clear. IMPRESSION: 1. No definite acute intracranial abnormality. Reviewed by: Paulie Rios MD on 06/23/2022 8:53 PM PDT Approved by: Paulie Rios MD on 06/23/2022 8:53 PM PDT Station ID: [id number]
[2022-06-23 21:20] VITALS: BP 104/67
== END 2022-06-23 21:20 | disposition home or self-care (01) ==
LOC: ED 18:39
DX: H53.8 Other visual disturbances (principal); R51.9 Headache, unspecified; R10.9 Unspecified abdominal pain; I10 Essential (primary) hypertension
CPT/HCPCS: 36415; 70450; 80053; 83690; 85025; 96374; 96375; 99284; J2060

== ENCOUNTER 2022-08-17 22:40 | Emergency (ER) | payer OTHER ==
--- OUTSIDE RECORDS SUMMARY | 2022-08-17 22:59 | EXTERNAL MEDICAL SUMMARY RPT | Continuity of Care Document ---
:1965 Author Organization [facility] Address [address] [place] [address] Phone Care Team Providers Name Role Phone Unavailable Unavailable Unavailable Margi Link Robert Unavailable Unavailable Allergies No information. Encounters No information. Functional Status No information. Immunizations No information. Medications date description facility [id number]+0000 nirmatrelvir-ritonavir All [id number]+0000 chlorthalidone All 35861188956534+0000 chlorthalidone All 77990618259838+0000 nirmatrelvir-ritonavir All 50859008033276+0000 chlorthalidone All 49238430247721+0000 chlorthalidone All 35600758325986+0000 nirmatrelvir-ritonavir All 87235281130287+0000 nirmatrelvir-ritonavir All 53279519463819+0000 sertraline All 12996614904692+0000 sertraline All 07690114941698+0000 DEXAMETHASONE SODIUM PHOSPHATE All 80855949476224+0000 potassium chloride All 71581983281174+0000 potassium chloride All 66867712649701+0000 sertraline All 72782991760281+0000 sertraline All 90415266514321+0000 potassium chloride All 38266935906908+0000 potassium chloride All 14275672045116+0000 chlorthalidone All 55212064653713+0000 chlorthalidone All 33187628918070+0000 atorvastatin All 43720374684299+0000 atorvastatin All 81023502823373+0000 chlorthalidone All 54645461694616+0000 chlorthalidone All 65672838032762+0000 atorvastatin All 74423554160948+0000 atorvastatin All 48568315837298+0000 sertraline All 78658890109483+0000 sertraline All 76951890636927+0000 sertraline All 05698649868951+0000 sertraline All 81191538762690+0000 atorvastatin All 25206631626250+0000 atorvastatin All 78024658074325+0000 potassium chloride All 60743357338026+0000 potassium chloride All 68222984451208+0000 atorvastatin All 36916167940987+0000 atorvastatin All 22171453295622+0000 potassium chloride All 66685162190819+0000 potassium chloride All Problems No information. Procedures date description facility [id number]+0000 Visit Code Hold All 97024950746519+0000 Visit Code Hold All 15427189977045+0000 Visit Code Hold All 06929799484043+0000 Dexamethasone Sodium Phosphate Inj 10m g/1mL All 09013199354230+0000 Dexamethasone Sodium Phosphate Inj 10m g/1mL All 48774017477295+0000 Med Administration ([facility]) All 51285197896319+0000 Med Administration ([facility]) All Results/Labs No information. Social History No information. Vital Signs date measurement value units 53699381514058+0000 BMI BMI 30.81 kg/m2 11985184919289+0000 BP_diastolic BP_diastolic 88 mm[H g] 82368455255887+0000 BP_systolic BP_systolic 145 mm[Hg] 31972198400880+0000 heart_rate heart_rate 72 /min 55268210139708+0000 height_metric height_metric 149.86 cm 07201535842067+0000 height_standard height_standard 59 in 37415907342136+0000 respiration_rate respiration_rate 14 /min 78081097965882+0000 temperature_metric temperature_metric 36.61 C 47316497099766+0000 temperature_standard temperature_standard 9 7.9 F 96579123696193+0000 weight_metric weight_metric 68.95 kg 98615538365698+0000 weight_standard weight_standard 152 lb 12836944285319+0000 BMI BMI 30.81 kg/m2 14683904070880+0000 BP_diastolic BP_diastolic 87 mmHg 49803563052244+0000 BP_systolic BP_systolic 157 mmHg 85296597853058+0000 heart_rate heart_rate 80 /min 42771986290827+0000 height_metric height_metric 149.86 cm 80335062814290+0000 height_standard height_standard 59 in 32024450142640+0000 respiration_rate respiration_rate 18 /min 13648094553559+0000 temperature_metric temperature_metric 38.39 C +0000 temperature_standard temperature_standard 1 01.1 F 00647117720262+0000 weight_metric weight_metric 68.95 kg +0000 weight_standard weight_standard 152 lb
[2022-08-17 23:20] LABS: BASOPHILS # (AUTO) 0.1 10^3/uL (0.0-0.1); BASOPHILS % (AUTO) 0.6 %; EOSINOPHILS # (AUTO) 0.4 10^3/uL (0.0-0.7); HCT - HEMATOCRIT 40.8 % (37.0-47.0); HGB - HEMOGLOBIN 13.5 g/dL (12.0-16.0); LYMPHOCYTES # (AUTO) 2.2 10^3/uL (1.5-3.5); LYMPHOCYTES % (AUTO) 24.6 %; MEAN CORPUSCULAR HEMOGLOBIN 29.3 pg (27.0-31.0); MEAN CORPUSCULAR HGB CONC 33.1 g/dL (32.0-36.0); MEAN CORPUSCULAR VOLUME 88.5 fL (81.0-99.0); MEAN PLATELET VOLUME 9.2 fL (7.9-10.8); MONOCYTES # (AUTO) 0.8 10^3/uL (0.0-1.0); MONOCYTES % (AUTO) 9.1 %; NEUTROPHILS # (AUTO) 5.4 10^3/uL (1.5-6.6); NEUTROPHILS % (AUTO) 61.4 %; PLT - PLATELET COUNT 278 10^3/uL (130-450); RED BLOOD COUNT 4.61 10^6/uL (4.20-5.40); RED CELL DISTRIBUTION WIDTH 12.3 % (12.0-15.0); WHITE BLOOD COUNT 8.8 x10^3/uL (4.8-10.8)
[2022-08-17 23:33] LABS: ALBUMIN 4.4 g/dL (3.2-5.5); ALBUMIN/GLOBULIN RATIO 1.2 (1.0-2.2); BILIRUBIN,TOTAL 0.6 mg/dL (0.2-1.0); CALCIUM 9.5 mg/dL (8.5-10.3); CREATININE 0.6 mg/dL (0.4-1.0); POTASSIUM 3.5 mmol/L (3.5-5.0); TOTAL PROTEIN 8.2 g/dL (6.7-8.2)
--- NOTE | 2022-08-18 00:13 | XRAY Report ---
PROCEDURE: Chest 1 View X-Ray INDICATIONS: Chest pain TECHNIQUE: One view of the chest was acquired. COMPARISON: 08/11/2021 FINDINGS: Surgical changes and devices: None. Lungs and pleura: No pleural effusions or pneumothorax. Lungs are clear. Mediastinum: Mediastinal contours appear unchanged. Heart size is at the upper limits of normal. Bones and chest wall: No suspicious bony lesions. Overlying soft tissues appear unremarkable. IMPRESSION: 1. No acute cardiopulmonary disease. Reviewed by: Paulie Rios MD on 08/18/2022 12:12 AM PDT Approved by: Paulie Rios MD on 08/18/2022 12:12 AM PDT Station ID: [id number]
--- NOTE | 2022-08-18 00:27 | ED Physician Documentation ---
History of Present Illness - Stated complaint Stated Complaint: HIGH BP, SOA, NECK PX - Chief complaint Chief Complaint: Cardiac - History obtained from History obtained from: Patient - History of Present Illness Pain level max: 2 (chest pain, midline anteirior chest) Pain level now: 0 - Additonal information Additional information: this evening, patient experienced midline chest pain with dyspnea, onset while at home at rest. Her greater concern is her high blood pressures, . He says she was 180s/70s, worsening to 190s/90 and presents with 200s/90s. She says she does routinely check her blood pressures but did tonight due to chest discomfort. Review of Systems Constitutional: denies: Fever, Chills, Sweats Cardiac: reports: Chest pain / pressure. 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 HEENT: None Psych: Depression, Anxiety Musculoskeletal: None Derm: None - Past Surgical History Past Surgical History: No - Present Medications Home Medications: Ambulatory Orders Medication Instructions Recorded Confirmed Atorvastatin [Lipitor] 40 mg pe DAILY 09/23/20 08/17/22 Sertraline [Zoloft] 100 mg PO QID 09/23/20 08/17/22 Albuterol Sulf [Ventolin Hfa 1 - 2 puffs INH Q4HR PRN #1 inhaler 07/08/21 08/17/22 Inhaler] amLODIPine [Norvasc] 5 mg PO DAILY 30 Days #30 tablet 07/21/21 08/17/22 Chlorthalidone 25 mg PO QID 08/13/21 08/17/22 Losartan Potassium [Cozaar] 100 mg PO QID 08/13/21 08/17/22 Omeprazole Magnesium 20 mg PO DAILY 08/17/22 08/17/22 - Allergies Allergies/Adverse Reactions: Allergies Allergy/AdvReac Type Severity Reaction Status Date / Time No Known Drug Allergies Allergy Verified 08/17/22 22:53 - Social History Does the pt smoke?: No Smoking Status: Never smoker Does the pt drink ETOH?: Yes Does the pt have substance abuse?: No - Immunizations Immunizations are current?: Yes - POLST Patient has POLST: No PD ED PE NORMAL - Vitals Vital signs reviewed: Yes - General General: Alert and oriented X 3, No acute distress, Well developed/nourished - HEENT HEENT: Moist mucous membranes - Neck Neck: Supple, no meningeal sign, No bony TTP, No adenopathy, No bruit, C-Spine cleared by NEXUS criteria - Cardiac Cardiac: RRR, No murmur, No rub - Respiratory Respiratory: No respiratory distress, Clear bilaterally - Abdomen Abdomen: Non tender. No: Soft, Non distended, No organomegaly, Other - Extremities Extremities: No edema Results - Vitals Vitals: Oxygen O2 Source Room air - EKG (time done) No standard instances Rate: Rate (enter#) (68) [place]: Normal Intervals: Normal [place], 2nd degree AVB type 1 Ischemia: Normal ST segments - Labs Labs: Laboratory Tests 08/17/22 08/17/22 08/17/22 23:12 23:12 23:12 WBC 8.8 RBC 4.61 Hgb 13.5 Hct 40.8 MCV 88.5 MCH 29.3 MCHC 33.1 RDW 12.3 Plt Count 278 MPV 9.2 Neut # (Auto) 5.4 Lymph # (Auto) 2.2 [place] # (Auto) 0.8 Eos # (Auto) 0.4 Baso # (Auto) 0.1 Absolute Nucleated RBC 0.00 Nucleated RBC % 0.0 Sodium 137 Potassium 3.5 Chloride 100 L Carbon Dioxide 26 Anion Gap 11.0 BUN 15 Creatinine 0.6 Estimated GFR (MDRD) 103 Glucose 104 H Calcium 9.5 Total Bilirubin 0.6 AST 40 ALT 49 Alkaline Phosphatase 100 Troponin I High Sens 8.6 Total Protein 8.2 Albumin 4.4 Globulin 3.7 Albumin/Globulin Ratio 1.2 Lipase 43 - Rads (name of study) chest xray Radiology: Prelim report reviewed, See rad report PD MEDICAL DECISION MAKING - ED course Complexity details: reviewed results, re-evaluated patient, considered differential, d/w patient ED course: Unremarkable testing tonight including CXR, EKG, and blood tests including hs- cTn. Her BP improved on it's own (without specific intervention). The cause of the high blood pressure in no apparent at this time, but advised to follow up with her prescribing provider, as she might need further adjustement in her meds if blood pressure remains high. Return precautions were reviewed Departure - Departure Disposition: 01 Home, Self Care Clinical Impression: Hypertension, Chest pain Condition: Good Instructions: ED Chest Pain Atypical Unkn Cause, ED Hypertension Conf Out Of Control Comments: The results of tonight's tests (EKG, chest xray, blood tests including a cardiac enzyme blood test) are all unremarkable. The cause of your symptoms is not apparent at this time. Your blood pressures steadily improved (without specific treatment) while you were in the ER. No further testing nor new medication is needed at this time. Continue with your current medications as prescribed. Follow up with your primary care provider within 1 week for reevaluation Discharge Date/Time: 08/18/22 01:02
[2022-08-18] MEDS ORDERED: IBUPROFEN 400 MG TABLET PO STA (00:48)
[2022-08-18 00:57] VITALS: BP 151/79
== END 2022-08-18 01:02 | disposition home or self-care (01) ==
LOC: ED 22:40
DX: R07.9 Chest pain, unspecified (principal); I10 Essential (primary) hypertension
CPT/HCPCS: 36415; 71045; 80053; 83690; 84484; 85025; 93005; 99284; A9270

== ENCOUNTER 2022-09-22 20:49 | Emergency (ER) | payer OTHER ==
[2022-09-22] MEDS: KETOROLAC 15 MG/ML VIAL IVP STA (22:29)
[2022-09-22] MEDS: diphenhydrAMINE INJ 50 MG/ML VIAL IVP STA (22:30)
[2022-09-22] MEDS: PROCHLORPERAZINE 10 MG/2 ML VIAL IVP STA (22:30)
[2022-09-22 22:37] LABS: BASOPHILS # (AUTO) 0.1 10^3/uL (0.0-0.1); BASOPHILS % (AUTO) 0.7 %; EOSINOPHILS # (AUTO) 0.3 10^3/uL (0.0-0.7); EOSINOPHILS % (AUTO) 3.8 %; HGB - HEMOGLOBIN 13.1 g/dL (12.0-16.0); LYMPHOCYTES # (AUTO) 2.2 10^3/uL (1.5-3.5); LYMPHOCYTES % (AUTO) 26.5 %; MEAN CORPUSCULAR HEMOGLOBIN 29.3 pg (27.0-31.0); MEAN CORPUSCULAR HGB CONC 32.8 g/dL (32.0-36.0); MEAN CORPUSCULAR VOLUME 89.5 fL (81.0-99.0); MEAN PLATELET VOLUME 9.5 fL (7.9-10.8); MONOCYTES # (AUTO) 0.9 10^3/uL (0.0-1.0); MONOCYTES % (AUTO) 10.2 %; NEUTROPHILS % (AUTO) 58.7 %; PLT - PLATELET COUNT 299 10^3/uL (130-450); RED BLOOD COUNT 4.47 10^6/uL (4.20-5.40); RED CELL DISTRIBUTION WIDTH 12.6 % (12.0-15.0); WHITE BLOOD COUNT 8.5 x10^3/uL (4.8-10.8)
[2022-09-22 22:51] LABS: ALBUMIN 4.1 g/dL (3.2-5.5); ALBUMIN/GLOBULIN RATIO 1.1 (1.0-2.2); BILIRUBIN,TOTAL 0.4 mg/dL (0.2-1.0); CALCIUM 9.4 mg/dL (8.5-10.3); CREATININE 0.6 mg/dL (0.4-1.0); POTASSIUM 3.3 mmol/L (3.5-5.0); TOTAL PROTEIN 7.7 g/dL (6.7-8.2)
--- NOTE | 2022-09-22 23:02 | ED Physician Documentation ---
History of Present Illness - Stated complaint Stated Complaint: HIGH BP,NECK PX - Chief complaint Chief Complaint: Cardiac - Additonal information Additional information: Patient 57-year-old female presenting to the emergency department with neck pain, headache, elevated blood pressure. Reports chronic neck pain. States has been particularly bad since around 7 PM. Associated with headache that was not maximal at time of onset. Reports noted that her blood pressure was elevated at home as well. Denies history of migraine headache disorder, syncope, trauma to her neck. Review of Systems Ten Systems: 10 systems reviewed and negative Constitutional: denies: Fever Eyes: denies: Loss of vision Ears: denies: Loss of hearing Nose: denies: Rhinorrhea / runny nose Throat: denies: Dental pain / toothache Cardiac: denies: Chest pain / pressure Respiratory: denies: Dyspnea GI: denies: Abdominal Pain : denies: Dysuria Musculoskeletal: reports: Neck pain Neurologic: reports: Headache. 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 : None HEENT: None Psych: Depression, Anxiety Musculoskeletal: None Derm: None Other Past Medical History: sinus bradycardia - Past Surgical History Past Surgical History: No - Present Medications Home Medications: Ambulatory Orders Medication Instructions Recorded Confirmed Atorvastatin [Lipitor] 40 mg pe DAILY 09/23/20 09/22/22 Sertraline [Zoloft] 100 mg PO QID 09/23/20 09/22/22 Albuterol Sulf [Ventolin Hfa 1 - 2 puffs INH Q4HR PRN #1 inhaler 07/08/21 09/22/22 Inhaler] amLODIPine [Norvasc] 5 mg PO DAILY 30 Days #30 tablet 07/21/21 09/22/22 Losartan Potassium [Cozaar] 100 mg PO QID 08/13/21 09/22/22 Omeprazole Magnesium 20 mg PO DAILY 08/17/22 09/22/22 methocarbamoL [Robaxin] 500 mg PO Q6H PRN #20 tablet 09/22/22 - Allergies Allergies/Adverse Reactions: Allergies Allergy/AdvReac Type Severity Reaction Status Date / Time No Known Drug Allergies Allergy Verified 09/22/22 21:08 - Social History Does the pt smoke?: No Smoking Status: Never smoker Does the pt drink ETOH?: No Does the pt have substance abuse?: No - Immunizations Immunizations are current?: Yes - POLST Patient has POLST: No PD ED PE NORMAL - General General: Alert and oriented X 3 - HEENT HEENT: Atraumatic - Neck Neck: Supple, no meningeal sign, Other (Right-sided paracervical spinal muscle tenderness to palpation. There is no point tenderness to the spine. No adenopathy, tracheal immobility appreciated on exam.) - Cardiac Cardiac: RRR - Respiratory Respiratory: No respiratory distress - Abdomen Abdomen: Normal bowel sounds - Female Female : Deferred - Rectal Rectal: Deferred Results - Vitals Vitals: Vital Signs - 24 hr 09/22/22 09/22/22 09/22/22 20:56 21:26 22:30 Temperature 36.7 C Heart Rate 97 48 L 61 Respiratory 16 19 16 Rate Blood Pressure 155/95 H 147/55 H 148/68 H O2 Saturation 97 97 96 Oxygen O2 Source Room air - EKG (time done) 2056 Rate: Rate (enter#) (66) Rhythm: NSR [place]: Normal Intervals: Normal [place] QRS: Normal Ischemia: Normal ST segments Computer interpretation: Agree with computer - Labs Labs: Laboratory Tests 09/22/22 09/22/22 09/22/22 22:25 22:25 22:25 WBC 8.5 RBC 4.47 Hgb 13.1 Hct 40.0 MCV 89.5 MCH 29.3 MCHC 32.8 RDW 12.6 Plt Count 299 MPV 9.5 Neut # (Auto) 5.0 Lymph # (Auto) 2.2 [place] # (Auto) 0.9 Eos # (Auto) 0.3 Baso # (Auto) 0.1 Absolute Nucleated RBC 0.00 Nucleated RBC % 0.0 Sodium 138 Potassium 3.3 L Chloride 102 Carbon Dioxide 27 Anion Gap 9.0 BUN 16 Creatinine 0.6 Estimated GFR (MDRD) 103 Glucose 111 H Calcium 9.4 Total Bilirubin 0.4 AST 37 ALT 41 Alkaline Phosphatase 98 Troponin I High Sens 5.3 Total Protein 7.7 Albumin 4.1 Globulin 3.6 Albumin/Globulin Ratio 1.1 Lipase 41 PD MEDICAL DECISION MAKING - ED course Complexity details: reviewed results, d/w patient ED course: Patient 57-year-old female presenting to the emergency department with acute on chronic neck pain with associated headache and elevated blood pressure. Known history essential hypertension. Afebrile, hemodynamically stable. Some right paracervical spinal tenderness to palpation but no nuchal rigidity appreciated. No focal or lateralizing neurologic deficit was appreciated on exam. Patient was given Compazine, Benadryl, Toradol in the emergency department with significant symptomatic relief. Her blood pressure trended down in the emergency department without requiring any direct antihypertensive management. Her elevated blood pressure is likely secondary to pain. Will discharge with a short course of a muscle relaxer for use at home. Encourage careful follow-up with primary care or return to the emergency department as needed. Departure - Departure Disposition: Home, Self Care Clinical Impression: Chronic neck pain, Headache, Elevated blood pressure reading Instructions: ED Headache Tension, ED Neck Pain No Trauma Prescriptions: methocarbamoL [Robaxin] 500 mg PO Q6H PRN #20 tablet PRN Reason: muscle spasm Comments: Thank you for allowing us to care for you today at [facility]. Prescription sent electronically to [facility]. Today in the emergency department you were evaluated for any possible life- threatening medical emergency. All the testing performed in the emergency department including your EKG and blood work were all very reassuring. Your blood pressure was elevated here in the emergency department but it has come down nicely with medications to help with your neck pain and headache. I have sent a prescription for a muscle relaxer to your preferred pharmacy to use to help with your neck pain over the course of the next few days. Please make a follow-up appoint with your primary care doctor soon as possible. If it anytime you develop any new or worsening symptoms please not hesitate to return.
[2022-09-22 23:14] VITALS: BP 117/61
== END 2022-09-22 23:17 | disposition home or self-care (01) ==
LOC: ED 20:49
DX: M54.2 Cervicalgia (principal); G89.29 Other chronic pain; R51.9 Headache, unspecified; I10 Essential (primary) hypertension
CPT/HCPCS: 36415; 80053; 83690; 84484; 85025; 93005; 96374; 96375; 99283; J1200

== ENCOUNTER 2023-01-24 22:49 | Emergency (ER) | payer OTHER ==
[2023-01-24 23:01] LABS: BASOPHILS % (AUTO) 0.5 %; EOSINOPHILS # (AUTO) 0.3 10^3/uL (0.0-0.7); EOSINOPHILS % (AUTO) 3.7 %; HCT - HEMATOCRIT 42.1 % (37.0-47.0); HGB - HEMOGLOBIN 13.8 g/dL (12.0-16.0); LYMPHOCYTES # (AUTO) 2.2 10^3/uL (1.5-3.5); LYMPHOCYTES % (AUTO) 26.2 %; MEAN CORPUSCULAR HEMOGLOBIN 29.8 pg (27.0-31.0); MEAN CORPUSCULAR HGB CONC 32.8 g/dL (32.0-36.0); MEAN CORPUSCULAR VOLUME 90.9 fL (81.0-99.0); MEAN PLATELET VOLUME 9.3 fL (7.9-10.8); MONOCYTES # (AUTO) 0.8 10^3/uL (0.0-1.0); MONOCYTES % (AUTO) 9.5 %; NEUTROPHILS % (AUTO) 59.9 %; PLT - PLATELET COUNT 263 10^3/uL (130-450); RED BLOOD COUNT 4.63 10^6/uL (4.20-5.40); RED CELL DISTRIBUTION WIDTH 12.7 % (12.0-15.0); WHITE BLOOD COUNT 8.3 x10^3/uL (4.8-10.8)
--- NOTE | 2023-01-24 23:03 | ED Physician Documentation ---
History of Present Illness - Stated complaint Stated Complaint: SOA - Chief complaint Chief Complaint: Cardiac - History obtained from History obtained from: Patient - Additonal information Additional information: HPI from patient. Patient c/o skipped-beat palpitations, left arm numbness, blurry vision, generalized headache. Symptoms began approximately 9 PM tonight while at home at rest. She has had similar symptoms before including [facility] ED evaluations for similar symptoms. 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 HEENT: None Psych: Depression, Anxiety Musculoskeletal: None Derm: None - Past Surgical History Past Surgical History: No - Present Medications Home Medications: Ambulatory Orders Medication Instructions Recorded Confirmed Atorvastatin [Lipitor] 40 mg pe DAILY 09/23/20 01/24/23 Sertraline [Zoloft] 100 mg PO QID 09/23/20 01/24/23 Albuterol Sulf [Ventolin Hfa 1 - 2 puffs INH Q4HR PRN #1 inhaler 07/08/21 01/24/23 Inhaler] amLODIPine [Norvasc] 5 mg PO DAILY 30 Days #30 tablet 07/21/21 01/24/23 Losartan Potassium [Cozaar] 100 mg PO QID 08/13/21 01/24/23 Omeprazole Magnesium 20 mg PO DAILY 08/17/22 01/24/23 methocarbamoL [Robaxin] 500 mg PO Q6H PRN #20 tablet 09/22/22 01/24/23 - Allergies Allergies/Adverse Reactions: Allergies Allergy/AdvReac Type Severity Reaction Status Date / Time No Known Drug Allergies Allergy Verified 01/24/23 22:55 - Social History Does the pt smoke?: No Smoking Status: Never smoker Does the pt drink ETOH?: No Does the pt have substance abuse?: No - Immunizations Immunizations are current?: Yes - POLST Patient has POLST: No PD ED PE NORMAL - Vitals Vital signs reviewed: Yes - General General: Alert and oriented X 3, No acute distress, Well developed/nourished - Cardiac Cardiac: RRR, No murmur - Respiratory Respiratory: No respiratory distress, Clear bilaterally - Abdomen Abdomen: Soft, Non tender - Derm Derm: Normal color, Warm and dry - Extremities Extremities: No edema - Neuro Neuro: Alert and oriented X 3, hyperbaric tech 2-12 intact, No motor deficit, No sensory deficit Results - Vitals Vitals: Oxygen O2 Source Room air - EKG (time done) #1 EKG releavant findings:: EKG personally interpreted by author of this note. Relevant findings are: Rate: Rate (enter#) (61) Rhythm: NSR [place]: Normal Intervals: Normal [place] QRS: Normal Ischemia: Normal ST segments Other comments: Other comments (artifact V4-V6) #2 EKG releavant findings:: EKG personally interpreted by author of this note. Relevant findings are: Rate: Rate (enter#) (62) Rhythm: NSR D Lo: Normal Intervals: Normal [place] QRS: Normal Ischemia: Normal ST segments - Labs Labs: Laboratory Tests 01/24/23 01/24/23 01/24/23 22:55 22:55 22:55 WBC 8.3 RBC 4.63 Hgb 13.8 Hct 42.1 MCV 90.9 MCH 29.8 MCHC 32.8 RDW 12.7 Plt Count 263 MPV 9.3 Neut # (Auto) 5.0 Lymph # (Auto) 2.2 [place] # (Auto) 0.8 Eos # (Auto) 0.3 Baso # (Auto) 0.0 Absolute Nucleated RBC 0.00 Nucleated RBC % 0.0 Sodium 137 Potassium 3.8 Chloride 103 Carbon Dioxide 26 Anion Gap 8.0 BUN 12 Creatinine 0.7 Estimated GFR (MDRD) 87 L Glucose 123 H Calcium 9.6 Total Bilirubin 0.6 AST 42 ALT 49 Alkaline Phosphatase 98 Troponin I High Sens 5.9 Total Protein 8.0 Albumin 4.1 Globulin 3.9 Albumin/Globulin Ratio 1.1 Lipase 47 - Rads (name of study) chest xray Relevant Findings:: Prelim report reviewed, See rad report PD Medical Decision Making - ED course Complexity details: reviewed old records, reviewed results, re-evaluated patient, considered differential, d/w patient ED course: No concerning findings on blood tests including CBC, ER abdominal panel, hs-cTn. CXR without acute findings. Etiology of symptoms is not apparent at this time. Return precautions discussed. Results d/w patient. Advised to seek follow up with PMD for reevaluation. Departure - Departure Disposition: 01 Home, Self Care Clinical Impression: Headache, Paresthesia Condition: Good Instructions: ED Cephalgia Unspecified, ED Paraesthesias Comments: There were no concerning nor diagnostic findings on tonight's tests, including EKG, chest x-ray, blood tests. The cause of your symptoms is not apparent at this time. I recommend that you contact your primary care provider on Thursday when their office opens to arrange for immediate follow-up for reevaluation of your various symptoms. Discharge Date/Time: 01/25/23 01:33
[2023-01-24 23:31] LABS: ALBUMIN 4.1 g/dL (3.2-5.5); ALBUMIN/GLOBULIN RATIO 1.1 (1.0-2.2); BILIRUBIN,TOTAL 0.6 mg/dL (0.2-1.0); CALCIUM 9.6 mg/dL (8.5-10.3); CREATININE 0.7 mg/dL (0.4-1.0); POTASSIUM 3.8 mmol/L (3.5-5.0)
[2023-01-24] MEDS ORDERED: KETOROLAC 30 MG/ML VIAL IVP STA (23:41)
--- NOTE | 2023-01-24 23:45 | XRAY Report ---
PROCEDURE: Chest 1 View X-Ray INDICATIONS: Chest pain TECHNIQUE: One view of the chest was acquired. COMPARISON: Prior CT chest 11/28/2021. FINDINGS: Surgical changes and devices: None. Lungs and pleura: No pleural effusions or pneumothorax. Lungs are mildly abnormal, with a mild degr ee of interstitial prominence. Mediastinum: Mediastinal contours appear normal. Heart size is globally enlarged to a mild degree. Bones and chest wall: No suspicious bony lesions. Overlying soft tissues appear unremarkable. IMPRESSION: Chronic mild cardiomegaly, chronic mild interstitial prominence within the lung parenchyma but stable from CT scanning in 2021. No definite pneumonia or pneumothorax found. Reviewed by: Glenn Dickson MD on 01/24/2023 11:56 PM PDT Approved by: Glenn Dickson MD on 01/24/2023 11:56 PM PDT Station ID: [id number]
[2023-01-25 01:07] VITALS: BP 151/68
== END 2023-01-25 01:33 | disposition home or self-care (01) ==
LOC: ED 22:49
DX: R51.9 Headache, unspecified (principal); R20.2 Paresthesia of skin
CPT/HCPCS: 36415; 80053; 83690; 84484; 85025; 93005; 96374; 99283

== ENCOUNTER 2023-02-09 13:01 | Outpatient (CLI) | payer OTHER ==
[2023-02-09] MEDS ORDERED: ALBUTEROL 1 PUFF INH STA (16:27)
== END 2023-02-09 13:02 | disposition home or self-care (01) ==
LOC: RT 13:01
PROVIDERS: ATTEND Internal Medicine
DX: R06.2 Wheezing (principal); R94.2 Abnormal results of pulmonary function studies
CPT/HCPCS: 94060; 94727; 94729

== ENCOUNTER 2023-02-26 06:33 | Outpatient (CLI) | payer OTHER ==
--- NOTE | 2023-02-26 11:03 | Ultrasound Report ---
PROCEDURE: Abdomen Complete INDICATIONS: ABDOMINAL DISTENSION TECHNIQUE: Real-time scanning was performed of the abdominal and retroperitoneal organs, with image documentatio n. COMPARISON: CT chest dated 11/28/2021. FINDINGS: Liver: Increased liver echogenicity, commonly mild hepatic steatosis. Gallbladder: Unremarkable. Biliary ducts: Intrahepatic bile ducts are non-dilated. Extrahepatic bile duct caliber measures 4 m m. Normal is 6-7 mm or less in diameter, or 10 mm or less post-cholecystectomy. Pancreas: Visualized portions of the pancreas are sonographically normal. Spleen: Spleen is normal in size and homogeneous in echotexture. Kidneys: Kidneys are normal in size and echotexture. Right kidney measures 10.1 cm long; left kidne y measures 11.2 cm long. No hydronephrosis or nephrolithiasis. No solid masses. No complex renal cy stic lesions which require follow-up. Aorta: Visualized aorta is normal in caliber at less than 3 cm. Iliacs: Proximal common iliac arteries are normal in caliber at less than 2.5 cm. IVC: Intrahepatic inferior vena cava is patent. Miscellaneous: No free abdominal fluid. IMPRESSION: Abdomen without acute sonographic abnormalities. Diffusely echogenic liver likely related to hepatic steatosis versus sequela of other chronic hepatoc ellular disease. Reviewed by: Oscar Richter MD on 02/26/2023 11:02 AM PDT Approved by: Oscar Richter MD on 02/26/2023 11:02 AM PDT Station ID: [id number]
== END 2023-02-26 06:34 | disposition home or self-care (01) ==
LOC: DI 06:33
PROVIDERS: ATTEND Internal Medicine
DX: R14.0 Abdominal distension (gaseous) (principal)

== ENCOUNTER 2023-03-27 12:30 | Outpatient (CLI) | payer OTHER ==
--- NOTE | 2023-03-27 16:05 | XRAY Report ---
PROCEDURE: Hand 3 View BILAT INDICATIONS: HAND PAIN TECHNIQUE: 3 views of the hand(s) acquired. COMPARISON: None. FINDINGS: Bones: No fractures or dislocations. Mild osteoarthritic changes are noted in bilateral hand and wr ist joints with joint space narrowing, subchondral sclerosis and small marginal osteophyte formation. No gross bony erosive changes. No suspicious bony lesions. Soft tissues: No suspicious soft tissue calcifications or masses. 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 No definite bony erosive changes. No fracture or dislocation. Reviewed by: Joe Rush MD on 03/27/2023 4:03 PM PDT Approved by: Joe Rush MD on 03/27/2023 4:03 PM PDT Station ID: [id number]
== END 2023-03-27 12:31 | disposition home or self-care (01) ==
LOC: DI 12:30
PROVIDERS: ATTEND Internal Medicine
DX: M19.041 Primary osteoarthritis, right hand (principal); M19.042 Primary osteoarthritis, left hand; M19.031 Primary osteoarthritis, right wrist; M19.032 Primary osteoarthritis, left wrist

== ENCOUNTER 2023-08-07 03:47 | Emergency (ER) | payer OTHER ==
[2023-08-07] MEDS ORDERED: MORPHINE 10 MG/ML VIAL IVP STA (04:17)
[2023-08-07] MEDS ORDERED: SODIUM CHLORIDE 0.9% 1,000 ML IV STA (04:17)
[2023-08-07] MEDS ORDERED: KETOROLAC 15 MG/ML VIAL IVP STA (04:17)
[2023-08-07] MEDS ORDERED: METOCLOPRAMIDE 10 MG/2 ML VIAL IVP STA (04:18)
[2023-08-07] MEDS ORDERED: diphenhydrAMINE ELIXIR 25 MG/10 ML UDC PO STA (04:19)
[2023-08-07] MEDS ORDERED: MAG HYDROX/AL HYDROX/SIMETH 30 ML UDC PO STA (04:19)
[2023-08-07] MEDS ORDERED: diphenhydrAMINE INJ 50 MG/ML VIAL IVP STA (04:19)
[2023-08-07] MEDS ORDERED: LIDOCAINE VISCOUS 2% 15 ML ORAL SYRINGE MM STA (04:19)
--- NOTE | 2023-08-07 04:23 | ED Physician Documentation ---
History of Present Illness - Stated complaint Stated Complaint: ABDOMINAL PAIN - Chief complaint Chief Complaint: Abd Pain - History obtained from History obtained from: Patient - Additonal information Additional information: 58yF with pmh htn, acid reflux, insomnia, p/w upset stomach for the past 5 days, keeping her from sleep tonight. also with BL frontal headache gradual onset tonight. endorses epigastric burning radiating upward c/w prior acid reflux, not resolving with home antacids/ tums. endorses nausea but no vomiting, diarrhea, back pain or urinary sx. denies fever. 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] 20 mg PO DAILY 08/07/23 08/07/23 traZODone [Desyrel] 50 - 100 mg PO HS PRN 08/07/23 08/07/23 - Allergies Allergies/Adverse Reactions: Allergies Allergy/AdvReac Type Severity Reaction Status Date / Time No Known Drug Allergies Allergy Verified 08/07/23 04:01 - Social History Does the pt smoke?: No Smoking Status: Never smoker Does the pt drink ETOH?: No Does the pt have substance abuse?: No - Immunizations Immunizations are current?: Yes - POLST Patient has POLST: No PD ED PE NORMAL - Vitals Vital signs reviewed: Yes - General General: Alert and oriented X 3, No acute distress, Well developed/nourished - HEENT HEENT: Atraumatic, PERRL, EOMI - Neck Neck: Supple, no meningeal sign - Cardiac Cardiac: RRR - Respiratory Respiratory: No respiratory distress, Clear bilaterally - Abdomen Abdomen: Non tender, Non distended, Other (epigastric discomfort with palpation) - Neuro Neuro: Alert and oriented X 3, vice president process 2-12 intact, No motor deficit, No sensory deficit, Normal speech Eye Opening: Spontaneous Motor: Obeys Commands Verbal: Oriented GCS Score: 15 Results - Vitals Vitals: Vital Signs - 24 hr 08/07/23 08/07/23 03:58 04:52 Temperature 36.7 C Heart Rate 68 66 Respiratory 16 16 Rate Blood Pressure 175/84 H 149/76 H O2 Saturation 95 96 Oxygen O2 Source Room air - Labs Labs: Laboratory Tests 08/07/23 08/07/23 04:20 04:20 WBC 6.1 RBC 4.53 Hgb 13.3 Hct 40.4 MCV 89.2 MCH 29.4 MCHC 32.9 RDW 12.4 Plt Count 278 MPV 9.4 Neut # (Auto) 3.2 Lymph # (Auto) 2.1 [place] # (Auto) 0.5 Eos # (Auto) 0.2 Baso # (Auto) 0.0 Absolute Nucleated RBC 0.00 Nucleated RBC % 0.0 Sodium 140 Potassium 3.7 Chloride 107 Carbon Dioxide 27 Anion Gap 6.0 BUN 14 Creatinine 0.6 Estimated GFR (MDRD) 103 Glucose 110 H Calcium 9.5 Total Bilirubin 0.5 AST 45 H ALT 78 H Alkaline Phosphatase 86 Total Protein 7.6 Albumin 4.5 Globulin 3.1 Albumin/Globulin Ratio 1.5 Lipase 33 PD Medical Decision Making - ED course ED course: 58yF presents with epigastric pain c/w prior acid reflux flares, as well as inability to sleep due to stomach pain and headache. will trial GI cocktail and migraine cocktail and reevaluate. cbc, abdominal panel ordered as well. Labwork looks pretty benign. patient resting comfortably, sleeping s/p meds and with resolution of MUJICA/stomach ache. return precautions given. plan to f/u with pcp for referral to GI Departure - Departure Disposition: 01 Home, Self Care Clinical Impression: Headache, Abdominal pain, Insomnia Condition: Stable Instructions: Tips Control Acid Reflux Follow-Up: Diego العلي MD [Physician No Access] - Comments: You were seen in the emergency department for acid reflux, headache and inability to sleep. Your labwork didn't show any emergent issue. Please follow-up with your primary care provider for referral to GI and return to the emergency department if you have any new or worsening symptoms or other concerns. Forms: PCP List
[2023-08-07 04:45] LABS: BASOPHILS % (AUTO) 0.7 %; EOSINOPHILS # (AUTO) 0.2 10^3/uL (0.0-0.7); EOSINOPHILS % (AUTO) 3.4 %; HCT - HEMATOCRIT 40.4 % (37.0-47.0); HGB - HEMOGLOBIN 13.3 g/dL (12.0-16.0); LYMPHOCYTES # (AUTO) 2.1 10^3/uL (1.5-3.5); LYMPHOCYTES % (AUTO) 34.8 %; MEAN CORPUSCULAR HEMOGLOBIN 29.4 pg (27.0-31.0); MEAN CORPUSCULAR HGB CONC 32.9 g/dL (32.0-36.0); MEAN CORPUSCULAR VOLUME 89.2 fL (81.0-99.0); MEAN PLATELET VOLUME 9.4 fL (7.9-10.8); MONOCYTES # (AUTO) 0.5 10^3/uL (0.0-1.0); MONOCYTES % (AUTO) 7.9 %; NEUTROPHILS # (AUTO) 3.2 10^3/uL (1.5-6.6); PLT - PLATELET COUNT 278 10^3/uL (130-450); RED BLOOD COUNT 4.53 10^6/uL (4.20-5.40); RED CELL DISTRIBUTION WIDTH 12.4 % (12.0-15.0); WHITE BLOOD COUNT 6.1 x10^3/uL (4.8-10.8)
[2023-08-07 05:11] LABS: ALBUMIN 4.5 g/dL (3.2-5.5); ALBUMIN/GLOBULIN RATIO 1.5 (1.0-2.2); BILIRUBIN,TOTAL 0.5 mg/dL (0.2-1.0); CALCIUM 9.5 mg/dL (8.5-10.3); CREATININE 0.6 mg/dL (0.6-1.3); POTASSIUM 3.7 mmol/L (3.5-4.5); TOTAL PROTEIN 7.6 g/dL (6.4-8.9)
[2023-08-07 05:38] VITALS: BP 150/75; O2SAT 98
== END 2023-08-07 05:47 | disposition home or self-care (01) ==
LOC: ED 03:47
DX: K21.9 Gastro-esophageal reflux disease without esophagitis (principal); R51.9 Headache, unspecified; G47.01 Insomnia due to medical condition
CPT/HCPCS: 36415; 80053; 83690; 85025; 96374; 96375; 99283; 99285; A9270; J1200; J2765

== ENCOUNTER 2023-08-27 22:25 | Emergency (ER) | payer SELFPAY ==
[2023-08-27] MEDS ORDERED: ACETAMINOPHEN 325 MG TABLET PO STA (22:47)
[2023-08-27] MEDS ORDERED: ONDANSETRON ODT 4 MG TABLET TL STA (23:01)
--- NOTE | 2023-08-27 23:01 | ED Physician Documentation ---
History of Present Illness - Stated complaint Stated Complaint: HIGH BP/MUJICA/NECK PX - Chief complaint Chief Complaint: General - History obtained from History obtained from: Patient - Additonal information Additional information: 58-year-old woman with history of high blood pressure, insomnia, presents with episode while shopping earlier today of gradual onset frontal bilateral headache, neck pain, nausea and increased blood pressure with reading of 198/95. Also had numbness in her left hand around noon with symptoms persisting now and headache currently rated at 7 out of 10. Does not take medications for it except for her daily blood pressure medicine (amlodipine in the morning and losartan at night). Denies chest pain, shortness of breath, vomiting, diarrhea, abdominal pain, fever. 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 : None HEENT: None Psych: Depression, Anxiety Musculoskeletal: None Derm: None - Past Surgical History Past Surgical History: No - Present Medications Home Medications: Ambulatory Orders Medication Instructions Recorded Confirmed amLODIPine [Norvasc] 5 mg PO DAILY 30 Days #30 tablet 07/21/21 08/27/23 Losartan Potassium [Cozaar] 100 mg PO HS 08/13/21 08/27/23 traZODone [Desyrel] 50 mg PO HS 08/27/23 08/27/23 - Allergies Allergies/Adverse Reactions: Allergies Allergy/AdvReac Type Severity Reaction Status Date / Time No Known Drug Allergies Allergy Verified 08/27/23 22:34 - Social History Does the pt smoke?: No Smoking Status: Never smoker Does the pt drink ETOH?: No Does the pt have substance abuse?: No - Immunizations Immunizations are current?: Yes - POLST Patient has POLST: No PD ED PE NORMAL - Vitals Vital signs reviewed: Yes - General General: Alert and oriented X 3, No acute distress, Well developed/nourished - HEENT HEENT: Atraumatic, PERRL, EOMI - Neck Neck: Supple, no meningeal sign - Cardiac Cardiac: RRR - Respiratory Respiratory: No respiratory distress, Clear bilaterally - Abdomen Abdomen: Non tender, Non distended - Derm Derm: Normal color, Warm and dry - Extremities Extremities: No edema - Neuro Neuro: Alert and oriented X 3, 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 Relevant findings are: Rate: Rate (enter#) (60) Rhythm: NSR [place]: Normal Intervals: Normal [place] QRS: Normal Ischemia: Normal ST segments - Labs Labs: Laboratory Tests 08/27/23 08/27/23 23:24 23:24 WBC 9.2 RBC 4.45 Hgb 13.6 Hct 39.2 MCV 88.1 MCH 30.6 MCHC 34.7 RDW 12.3 Plt Count 266 MPV 9.2 Neut # (Auto) 5.8 Lymph # (Auto) 2.5 [place] # (Auto) 0.7 Eos # (Auto) 0.2 Baso # (Auto) 0.0 Absolute Nucleated RBC 0.00 Nucleated RBC % 0.0 Sodium 136 Potassium 3.5 Chloride 103 Carbon Dioxide 26 Anion Gap 7.0 BUN 13 Creatinine 0.7 Estimated GFR (MDRD) 86 L Glucose 105 H Calcium 9.4 Total Bilirubin 0.3 AST 31 ALT 54 Alkaline Phosphatase 87 Total Protein 7.6 Albumin 4.2 Globulin 3.4 Albumin/Globulin Ratio 1.2 Lipase 29 PD Medical Decision Making - ED course ED course: 58-year-old woman with history of high blood pressure presents with elevated blood pressure and headache and nausea as well as inability to sleep. EKG noncontributory. Plan to assess for signs of endorgan damage but blood pressure already is improved from her home BP of 198/95, down to 145/84 at triage. Plan to address her headache and nausea with Tylenol and Zofran orally. If lab work looks okay then she can follow-up outpatient with her primary care provider. Departure - Departure Disposition: 01 Home, Self Care Clinical Impression: Headache, Hypertension, Nausea Condition: Stable Instructions: ED Headache Tension, Hypertension Control Comments: You were seen in the emergency department for headache, high blood pressure and nausea. Your ekg and labwork looked okay. Your blood pressure improved in the ED. Please follow-up with your primary care provider and return to the emergency department if you have any new or worsening symptoms or other concerns. Forms: PCP List
[2023-08-27 23:27] LABS: BASOPHILS % (AUTO) 0.4 %; EOSINOPHILS # (AUTO) 0.2 10^3/uL (0.0-0.7); EOSINOPHILS % (AUTO) 2.2 %; HCT - HEMATOCRIT 39.2 % (37.0-47.0); HGB - HEMOGLOBIN 13.6 g/dL (12.0-16.0); LYMPHOCYTES # (AUTO) 2.5 10^3/uL (1.5-3.5); LYMPHOCYTES % (AUTO) 27.2 %; MEAN CORPUSCULAR HEMOGLOBIN 30.6 pg (27.0-31.0); MEAN CORPUSCULAR HGB CONC 34.7 g/dL (32.0-36.0); MEAN CORPUSCULAR VOLUME 88.1 fL (81.0-99.0); MEAN PLATELET VOLUME 9.2 fL (7.9-10.8); MONOCYTES # (AUTO) 0.7 10^3/uL (0.0-1.0); MONOCYTES % (AUTO) 7.5 %; NEUTROPHILS # (AUTO) 5.8 10^3/uL (1.5-6.6); NEUTROPHILS % (AUTO) 62.4 %; PLT - PLATELET COUNT 266 10^3/uL (130-450); RED BLOOD COUNT 4.45 10^6/uL (4.20-5.40); RED CELL DISTRIBUTION WIDTH 12.3 % (12.0-15.0); WHITE BLOOD COUNT 9.2 x10^3/uL (4.8-10.8)
[2023-08-27 23:44] LABS: ALBUMIN 4.2 g/dL (3.2-5.5); ALBUMIN/GLOBULIN RATIO 1.2 (1.0-2.2); BILIRUBIN,TOTAL 0.3 mg/dL (0.2-1.0); CALCIUM 9.4 mg/dL (8.5-10.3); CREATININE 0.7 mg/dL (0.6-1.3); POTASSIUM 3.5 mmol/L (3.5-4.5); TOTAL PROTEIN 7.6 g/dL (6.4-8.9)
[2023-08-28 00:26] VITALS: BP 128/66; O2SAT 98
== END 2023-08-28 00:16 | disposition home or self-care (01) ==
LOC: ED 22:25
DX: R51.9 Headache, unspecified (principal); I10 Essential (primary) hypertension; R11.0 Nausea
CPT/HCPCS: 36415; 80053; 83690; 85025; 93005; 99283; 99284; A9270; Q0162

== ENCOUNTER 2023-11-18 11:45 | Outpatient (CLI) | payer BC ==
--- NOTE | 2023-11-18 15:40 | XRAY Report ---
PROCEDURE: Cervical Spine 2-3V INDICATIONS: NECK PAIN TECHNIQUE: 3 view(s) of the cervical spine were acquired. COMPARISON: CT 07/20/2020 FINDINGS: Bones: Moderate degenerative changes, particularly with bridging osteophytes from C3 to C7. Vertebral body heights are well-maintained, no traumatic subluxation. Normal C1 on C2 alignment on the odontoi d view. Soft tissues: Prominence of the prevertebral soft tissues may be related to anterior osteophyte forma tion. IMPRESSION: Moderate degenerative changes with prominent anterior bridging osteophyte formation also seen previou sly. If there is high concern for further derangement, consider MRI evaluation. Reviewed by: Myles Rsoe MD on 11/18/2023 3:38 PM PST Approved by: Myles Rose MD on 11/18/2023 3:38 PM PST Station ID: [id number]
== END 2023-11-18 12:00 | disposition home or self-care (01) ==
LOC: DI.N 11:45
PROVIDERS: ATTEND Nurse Practitioner
DX: M47.812 Spondylosis without myelopathy or radiculopathy, cervical region (principal); M25.78 Osteophyte, vertebrae

== ENCOUNTER 2024-04-05 19:04 | Emergency (ER) | payer BC ==
--- NOTE | 2024-04-05 19:49 | XRAY Report ---
PROCEDURE: Chest 1V INDICATIONS: Chest pain TECHNIQUE: One view of the chest was acquired. COMPARISON: 01/24/2023. FINDINGS: Surgical changes and devices: None. Lungs and pleura: No pleural effusions or pneumothorax. Mild right apical scarring is stable. Lungs are otherwise clear. Mediastinum: Mediastinal contours appear normal. Heart size is mildly enlarged, stable. Bones and chest wall: No suspicious bony lesions. Overlying soft tissues appear unremarkable. IMPRESSION: No acute cardiopulmonary process. Reviewed by: Leonid Tovar MD on 04/05/2024 7:48 PM PDT Approved by: Leonid Tovar MD on 04/05/2024 7:48 PM PDT Station ID: [id number]
[2024-04-05 19:57] LABS: BASOPHILS # (AUTO) 0.1 10^3/uL (0.0-0.1); BASOPHILS % (AUTO) 0.5 %; EOSINOPHILS # (AUTO) 0.3 10^3/uL (0.0-0.7); HCT - HEMATOCRIT 43.9 % (37.0-47.0); LYMPHOCYTES # (AUTO) 2.3 10^3/uL (1.5-3.5); LYMPHOCYTES % (AUTO) 21.2 %; MEAN CORPUSCULAR HEMOGLOBIN 28.9 pg (27.0-31.0); MEAN CORPUSCULAR HGB CONC 31.9 g/dL (32.0-36.0); MEAN CORPUSCULAR VOLUME 90.7 fL (81.0-99.0); MEAN PLATELET VOLUME 9.4 fL (7.9-10.8); MONOCYTES # (AUTO) 0.9 10^3/uL (0.0-1.0); MONOCYTES % (AUTO) 7.9 %; NEUTROPHILS # (AUTO) 7.2 10^3/uL (1.5-6.6); NEUTROPHILS % (AUTO) 67.1 %; PLT - PLATELET COUNT 286 10^3/uL (130-450); RED BLOOD COUNT 4.84 10^6/uL (4.20-5.40); RED CELL DISTRIBUTION WIDTH 12.3 % (12.0-15.0); WHITE BLOOD COUNT 10.8 x10^3/uL (4.8-10.8)
[2024-04-05 20:19] LABS: ALBUMIN 4.4 g/dL (3.2-5.5); ALBUMIN/GLOBULIN RATIO 1.7 (1.0-2.2); BILIRUBIN,TOTAL 0.3 mg/dL (0.2-1.0); CREATININE 0.8 mg/dL (0.6-1.3); TROPONIN I HIGH SENSITIVITY 5.6 ng/L (2.3-14.8)
--- NOTE | 2024-04-05 20:52 | ED Physician Documentation ---
PD HPI CHEST PAIN - Stated complaint Stated Complaint: CHEST PX - Chief complaint Chief Complaint: Cardiac - History obtained from History obtained from: Patient - Additional information Additional information: HPI from patient. Patient c/o left-sided chest pain x 5 days without inciting event. Pain is constant, exacerbated with deep inspiration (pleuritic), no ameliorating factors. Has not had this before. Denies leg swelling, dyspnea, cough, fever. Pain does not radiate from left chest. Review of Systems Constitutional: denies: Fever, Chills, Sweats Cardiac: reports: Chest pain / pressure. 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 HEENT: None Psych: Depression, Anxiety Musculoskeletal: None Derm: None - Past Surgical History Past Surgical History: No - Present Medications Home Medications: Ambulatory Orders Medication Instructions Recorded Confirmed amLODIPine [Norvasc] 5 mg PO DAILY 30 Days #30 tablet 07/21/21 04/05/24 Losartan Potassium [Cozaar] 100 mg PO HS 08/13/21 04/05/24 traZODone [Desyrel] 50 mg PO HS 08/27/23 04/05/24 Alprazolam [Xanax] 0.25 mg PO DAILY PRN 04/05/24 04/05/24 Sertraline HCl 100 mg PO DAILY 04/05/24 04/05/24 - Allergies Allergies/Adverse Reactions: Allergies Allergy/AdvReac Type Severity Reaction Status Date / Time No Known Drug Allergies Allergy Verified 04/05/24 19:17 - Social History Does the pt smoke?: No Smoking Status: Never smoker Does the pt drink ETOH?: No Does the pt have substance abuse?: No - Immunizations Immunizations are current?: Yes - POLST Patient has POLST: No PD ED PE NORMAL - Vitals Vital signs reviewed: Yes - General General: Alert and oriented X 3, No acute distress, Well developed/nourished - HEENT HEENT: Moist mucous membranes - Cardiac Cardiac: RRR, No murmur - Respiratory Respiratory: No respiratory distress, Clear bilaterally - Abdomen Abdomen: Soft, Non tender - Derm Derm: Normal color, Warm and dry - Extremities Extremities: No edema Results - Vitals Vitals: Oxygen O2 Source Room air - EKG (time done) No standard instances EKG releavant findings:: EKG personally interpreted by author of this note. Relevant findings are: Rate: Rate (enter#) (66) Rhythm: NSR [place]: Normal Intervals: Normal [place] QRS: Normal Ischemia: Normal ST segments, Non specific changes (flat/inverted T I, aVL) Other comments: Other comments (PAC) Compare to prior EKG: Unchanged from prior EKG (no significant change compared to 08/27/23) - Labs Labs: Laboratory Tests 04/05/24 04/05/24 19:53 19:53 WBC 10.8 RBC 4.84 Hgb 14.0 Hct 43.9 MCV 90.7 MCH 28.9 MCHC 31.9 L RDW 12.3 Plt Count 286 MPV 9.4 Neut # (Auto) 7.2 H Lymph # (Auto) 2.3 [place] # (Auto) 0.9 Eos # (Auto) 0.3 Baso # (Auto) 0.1 Absolute Nucleated RBC 0.00 Nucleated RBC % 0.0 Sodium 138 Potassium 4.0 Chloride 100 L Carbon Dioxide 31 Anion Gap 7.0 BUN 16 Creatinine 0.8 Estimated GFR (MDRD) 74 L Glucose 112 H Calcium 10.0 Total Bilirubin 0.3 AST 56 H ALT 70 H Alkaline Phosphatase 98 Troponin I High Sens 5.6 Total Protein 7.0 Albumin 4.4 Globulin 2.6 Albumin/Globulin Ratio 1.7 Lipase 30 - Rads (name of study) chest xray Relevant Findings:: Prelim report reviewed, See rad report CTA chest Relevant Findings:: Prelim report reviewed, See rad report PD Medical Decision Making - ED course Complexity details: reviewed results, re-evaluated patient, considered differential, d/w patient ED course: No concerning nor diagnostic findings on CBC, ER abdominal panel. Minimally elevated AST and ALT noted. normal hs-cTn. Unremarkable EKG, unchanged compared to 08/27/23. Unremarkable CXR. Given pleuritic component and age (cannot apply PERC r/o due to age >50), CTA chest undertaken. There is no evidence of PE on this study nor any acute/concerning finding(s); note is made of interstitial thickening, most prominent right lung, but unchanged compared to prior study dated 11/28/2019. Etiology of patient's symptoms is not apparent at this time. Results d/w patient, return precautions reviewed, advised to seek follow up for reevaluation with PCP next available appointment. Departure - Departure Disposition: 01 Home, Self Care Clinical Impression: Chest pain Condition: Good Instructions: ED Chest Pain Atypical Unkn Cause Follow-Up: Dennis Garcia MD [Primary Care Provider] - Comments: There were no concerning nor diagnostic findings on tonight's tests, including the EKG, blood tests, chest x-ray, and the CT scan of your chest. As we discussed, there are findings on the CT scan of your chest suggestive of scarring; it is unclear what is causing this appearance, but the radiologist does note that it is similar in appearance to a CT scan you had 4 years ago. Thus, this is not a new finding for you and is therefore highly unlikely to be related to tonight's symptoms. Contact your primary care provider tomorrow morning when the office opens to arrange for the next available appointment for follow-up/reevaluation. Discharge Date/Time: 04/05/24 23:17
[2024-04-05] MEDS ORDERED: iohexoL-300 100 ML VIAL ONE (21:20)
[2024-04-05] MEDS: iohexoL-300 100 ML VIAL IVP ONE (21:57)
--- NOTE | 2024-04-05 22:09 | CT Report ---
PROCEDURE: Angio Chest INDICATIONS: pleuritic chest pain, dyspnea CONTRAST: Omni 300, 80mls TECHNIQUE: After the administration of intravenous contrast, 2 mm axial images were acquired from the pulmonary apices to the posterior costophrenic angles during the arterial phase. In addition, 1 mm lung kernel and 5 mm soft tissue kernel reconstructions were performed. 3-dimensional coronal oblique maximum int ensity projection (MIP) reformats, 8 mm axial MIP, and 5 mm coronal and sagittal MPR reformats were t hen performed through the thorax. For radiation dose reduction, the following was used: automated exp osure control, adjustment of mA and/or kV according to patient size. COMPARISON: CT chest 11/28/2019. FINDINGS: Image quality: Diagnostic. Large vessels: No filling defects within the opacified pulmonary arteries, accounting for motion and contrast timing. No evidence of acute aortic syndrome or aortic aneurysm. Lungs and pleura: Similar mild reticular thickening with areas of pleural calcification/thickening. C alcified granulomas. No pleural effusions. No pneumothorax. No suspicious pulmonary nodules which re quire follow up. Mediastinum: Heart size is normal. No pericardial effusion. No large vessel abnormality. No mediastin al adenopathy by size criteria. Chest wall and lower neck: Thyroid is unremarkable. No axillary or supraclavicular adenopathy by size . Bones: No aggressive osseous abnormality. Upper Abdomen: Hepatic steatosis.. IMPRESSION: No pulmonary embolus. Stable interstitial thickening most notable in the right lung, not significantly changed compared to prior. Finding may represent inflammatory/infectious scarring versus mild interstitial lung disease. Reviewed by: Brenda Calvin MD, PhD on 04/05/2024 10:08 PM PDT Approved by: Brenda Calvin MD, PhD on 04/05/2024 10:08 PM PDT Station ID: [id number]
[2024-04-05 22:39] VITALS: O2SAT 97
[2024-04-05 23:25] VITALS: BP 123/78
== END 2024-04-05 23:17 | disposition home or self-care (01) ==
LOC: ED 19:04
DX: R07.9 Chest pain, unspecified (principal)
CPT/HCPCS: 36415; 71045; 71275; 80053; 83690; 84484; 85025; 93005; 99283; 99284; Q9967